=== PATIENT | female | born 1950 | race Caucasian/White ===

== ENCOUNTER 2017-07-19 18:03 | Observation (INO) | payer OTHER ==
[2017-07-19] MEDS ORDERED: ASPIRIN 325 MG ENTERIC COATED TABLET (FP) PO ONE (18:12)
[2017-07-19 18:13] VITALS: BMI 37.2
--- NOTE | 2017-07-19 18:14 | PDOC ---
Rapid Medical Evaluation Chief Complaint: Chest Pain Time Seen by Provider: 07/19/17 18:10 Medical Evaluation: Allergies Allergy/AdvReac Type Severity Reaction Status Date / Time peanut [Peanut] Allergy TONGUE Verified 07/19/17 18:10 SWELLING atorvastatin calcium AdvReac MUSCLE PAIN Verified 07/19/17 18:10 [From Lipitor] 07/19/17 18:10 The patient presents with a chief complaint of: Chest pain/pressure for three days. Hx of angina, has two stents I have performed a brief in-person evaluation of this patient; Pertinent physical exam findings: ambulatory, in no respiratory distress, VSS, RRR I have ordered the following: EKG, CBC, CMP, PT/INR, Troponin, BNP, Chest x-ray , aspirin The patient will proceed to the ED for further evaluation.
[2017-07-19] MEDS ORDERED: ASPIRIN 325 MG ENTERIC COATED TABLET (FP) ONE (18:26)
[2017-07-19 18:52] LABS: EOS % 1.5 % (0-4.5); HEMATOCRIT 44.8 % (32.4-45.2); HEMOGLOBIN 15.2 GM/dL (10.7-15.3); LYMPH % 23.7 % (8-40); MCH 30.1 pg (25.7-33.7); MCHC 33.9 g/dl (32.0-36.0); MEAN CELL VOLUME 88.9 fl (80-96); MEAN PLT VOLUME 9.5 fl (7.5-11.1); MONO % 7.8 % (3.8-10.2); PLATELET COUNT 270 K/MM3 (134-434); RBC 5.04 M/mm3 (3.60-5.2); RDW 12.6 % (11.6-15.6); WHITE BLOOD COUNT 7.4 K/mm3 (4.0-10.0)
[2017-07-19 19:14] LABS: INR 1.04 (0.82-1.09); PROTHROMBIN TIME (PATIENT) 11.7 SEC (9.98-11.88)
[2017-07-19 19:39] LABS: ALBUMIN 4.1 g/dl (3.4-5.0); ANION GAP 8 (8-16); BILIRUBIN,TOTAL 0.4 mg/dL (0.2-1.0); BLOOD UREA NITROGEN 18 mg/dL (7-18); CALCIUM 9.7 mg/dL (8.5-10.1); CHLORIDE 97 mmol/L (98-107); CO2 32 mmol/L (21-32); CREATININE 0.7 mg/dL (0.55-1.02); GLUCOSE,RANDOM 114 mg/dL (74-106); MAGNESIUM 1.8 mg/dL (1.8-2.4); POTASSIUM 3.6 mmol/L (3.5-5.1); SGOT/AST 12 U/L (15-37); SGPT/ALT 25 U/L (12-78); SODIUM 137 mmol/L (136-145)
[2017-07-19 19:42] LABS: ALK PHOS 75 U/L (45-117); TOT PROT 7.5 g/dl (6.4-8.2)
--- NOTE | 2017-07-19 21:25 | PDOC ---
History of Present Illness - General History Source: Patient, Family (daughter), Old Records Exam Limitations: Other (poor historian ) <Mihaela Talley - Last Filed: 07/19/17 21:58> <Florencia Forrest - Last Filed: 07/19/17 23:43> - General Chief Complaint: Chest Pain Stated Complaint: CHEST PAIN Time Seen by Provider: 07/19/17 18:10 - History of Present Illness Initial Comments: 07/19/17 21:45 The patient is a 67 year old female with history of hypertension, hyperlipidemia , CAD s/p stents x 2, skin CA, who presents to the ED complaining of 3 days of chest tightness/chest pressure. She states she has been feeling generally "unwell" for the past few days. She is a poor historian and unable to describe her symptoms further. The daughter at bedside reports the patient has not been able to refill her anti-depressants recently, which may be contributing to her symptoms. The patient has multiple hospital visits where she has been observed for chest pain diagnosed with anxiety/panic attacks. (Mihaela Talley) Past History <Mihaela Talley - Last Filed: 07/19/17 21:58> - Past Medical History Anemia: No Asthma: No Cancer: Yes (SKIN CANCER) Cardiac Disorders: Yes (2 STENTS, ANGINA) CVA: No COPD: No CHF: No Dementia: No Diabetes: No GI Disorders: Yes (GERD,PANCREATITIS) Disorders: No HTN: Yes Hypercholesterolemia: Yes Liver Disease: No Seizures: No Thyroid Disease: No - Surgical History Abdominal Surgery: No Appendectomy: No Cardiac Surgery: Yes (2 STENTS (1999. 2006)) Cholecystectomy: Yes Lung Surgery: No Neurologic Surgery: No Orthopedic Surgery: Yes (LUMBAR FUSION) - Suicide/Smoking/Psychosocial Hx Smoking Status: No Smoking History: Never smoked Have you smoked in the past 12 months: No Number of Cigarettes Smoked Daily: 0 Information on smoking cessation initiated: No Hx Alcohol Use: No Drug/Substance Use Hx: No Substance Use Type: None Hx Substance Use Treatment: No <Florencia Forrest - Last Filed: 07/19/17 23:43> - Past Medical History Allergies/Adverse Reactions: Allergies Allergy/AdvReac Type Severity Reaction Status Date / Time peanut [Peanut] Allergy TONGUE Verified 07/19/17 18:10 SWELLING atorvastatin calcium AdvReac MUSCLE PAIN Verified 07/19/17 18:10 [From Lipitor] Home Medications: Ambulatory Orders Simvastatin 40 mg PO HS #1 02/11/12 Pregabalin [Lyrica] 75 mg PO HS 05/09/12 Tapentadol HCl [Nucynta] 75 mg PO DAILY 10/19/12 Quetiapine Fumarate [Seroquel -] 25 mg PO HS 07/25/13 Metoprolol Succinate [Toprol XL -] 25 mg PO HS 01/29/15 Ranitidine HCl [Zantac] 300 mg PO HS 07/19/17 Valsartan/Hydrochlorothiazide [Valsartan-Hctz 160-12.5 mg Tab] 1 tab PO HS 07/19 Venlafaxine HCl ER [Effexor Xr -] 37.5 mg PO HS 07/19/17 Cardiac Specific PMH - Complaint Specific PMHX Pacemaker: No <Florencia Forrest - Last Filed: 07/19/17 23:43> Review of Systems - Review of Systems Able to Perform ROS?: Yes <Mihaela Talley - Last Filed: 07/19/17 21:58> <Florencia Forrest - Last Filed: 07/19/17 23:43> - Review of Systems Comments:: 07/19/17 22:01 GENERAL/CONSTITUTIONAL: No fever or chills. No weakness. HEAD, EYES, EARS, NOSE AND THROAT: No change in vision. No ear pain or discharge. No sore throat. CARDIOVASCULAR: +Chest tightness/discomfort. No palpitations or shortness of breath. RESPIRATORY: No cough, wheezing, or hemoptysis. GASTROINTESTINAL: No nausea, vomiting, diarrhea or constipation. GENITOURINARY: No dysuria, frequency, or change in urination. MUSCULOSKELETAL: No joint or muscle swelling or pain. No neck or back pain. SKIN: No rash NEUROLOGIC: No headache, vertigo, loss of consciousness, or change in strength/ sensation. ENDOCRINE: No increased thirst. No abnormal weight change. HEMATOLOGIC/LYMPHATIC: No anemia, easy bleeding, or history of blood clots. ALLERGIC/IMMUNOLOGIC: No hives or skin allergy. (Mihaela Talley) *Physical Exam <Mihaela Talley - Last Filed: 07/19/17 21:58> <Florencia Forrest - Last Filed: 07/19/17 23:43> - Vital Signs Last Vital Signs Temp Pulse Resp BP Pulse Ox 98.1 F 75 20 143/86 96 07/19/17 22:58 07/19/17 22:58 07/19/17 22:58 07/19/17 22:58 07/19/17 22:58 - Physical Exam Comments: 07/19/17 22:02 GENERAL: Awake, alert, and fully oriented, in no acute distress HEAD: No signs of trauma EYES: PERRLA, EOMI, sclera anicteric, conjunctiva clear ENT: Auricles normal inspection, hearing grossly normal, nares patent, oropharynx clear without exudates. Moist mucosa NECK: Normal ROM, supple, no lymphadenopathy, JVD, or masses LUNGS: Breath sounds equal, clear to auscultation bilaterally. No wheezes, and no crackles HEART: Regular rate and rhythm, normal S1 and S2, no murmurs, rubs or gallops ABDOMEN: Soft, nontender, normoactive bowel sounds. No guarding, no rebound. No masses EXTREMITIES: Normal range of motion, no edema. No clubbing or cyanosis. No cords, erythema, or tenderness NEUROLOGICAL: Cranial nerves II through XII grossly intact. Normal speech, normal gait SKIN: Warm, Dry, normal turgor, no rashes or lesions noted. (Mihaela Talley) ED Treatment Course - LABORATORY CBC & Chemistry Diagram: 07/19/17 18:42 07/19/17 18:42 <Mihaela Talley - Last Filed: 07/19/17 21:58> - LABORATORY CBC & Chemistry Diagram: 07/19/17 18:42 07/19/17 18:42 <Florencia Forrest - Last Filed: 07/19/17 23:43> - ADDITIONAL ORDERS Additional order review: Laboratory Results 07/19/17 07/19/17 07/19/17 18:42 18:42 18:42 PT with INR 11.70 INR 1.04 Sodium 137 Potassium 3.6 Chloride 97 L Carbon Dioxide 32 Anion Gap 8 BUN 18 Creatinine 0.7 Creat Clearance w eGFR > 60 Random Glucose 114 H Calcium 9.7 Magnesium 1.8 Total Bilirubin 0.4 AST 12 L ALT 25 Alkaline Phosphatase 75 Creatine Kinase 66 Troponin I < 0.02 B-Natriuretic Peptide 27.50 Total Protein 7.5 Albumin 4.1 07/19/17 18:42 RBC 5.04 MCV 88.9 MCHC 33.9 RDW 12.6 MPV 9.5 Neutrophils % 66.0 Lymphocytes % 23.7 Monocytes % 7.8 Eosinophils % 1.5 Basophils % 1.0 - Medications Given in the ED: ED Medications Discontinued Medications Generic Name Dose Route Start Last Admin Trade Name Catie PRN Reason Stop Dose Admin Aspirin 325 mg 07/19/17 18:12 07/19/17 18:23 Ecotrin - PO 07/19/17 18:13 325 mg ONCE ONE Administration Medical Decision Making <Mihaela Talley - Last Filed: 07/19/17 21:58> <Florencia Forrest - Last Filed: 07/19/17 23:43> - Medical Decision Making 07/19/17 23:41 67 yo female p/w several days of constant chest pressure -PMH CAD, cardiac stents and her play leader is Dr Veloz -spoke w Dr Rojo who agreed with the repeat troponin -first troponin negative plan second cardiac enzymes (Florencia Forrest) *DC/Admit/Observation/Transfer <Mihaela Talley - Last Filed: 07/19/17 21:58> - Discharge Dispostion Admit: Yes <Florencia Forrest - Last Filed: 07/19/17 23:43> Diagnosis at time of Disposition: Chest pain Qualifiers: Chest pain type: unspecified Qualified Code(s): R07.9 - Chest pain, unspecified - Attestations Scribe Attestion: 07/19/17 22:02 Documentation prepared by Mihaela Talley, acting as biomedical field service engineer for Florencia Forrest MD. (Mihaela Talley)
--- NOTE | 2017-07-20 02:28 | PN ---
Teaching Attending Note Name of Resident: Howard Damon ATTENDING PHYSICIAN STATEMENT I saw and evaluated the patient. I reviewed the resident's note and discussed the case with the resident. I agree with the resident's findings and plan as documented. SUBJECTIVE: 67 yo F with hx. of HTN, HLD, CAD s/p stents X2, skin ca, who presents w. ED w. hx. of chest tightness/pressure. States that she has last been having continous chest pressure. Notes she saw her straightening machine operator one month ago and noted her workup was fine at that time. States she does not have chest pain or tightness. Also notes she has significant anxiety and as per family is prone to panic attacks. OBJECTIVE: Physical: VS: Vital Signs Period Temp Pulse Resp BP Sys/Perales Pulse Ox Last 24 Hr 97.9 F-98.3 F 72-77 18-20 128-153/85-98 96-100 GEN: NAD, Resting in bed, AAoX3 HEENT: NCAT, PERRL, throat without erythema or exudates CARD: RRR S1, S2 RESP: CTAB ABD: BSx4, NTD to palpation EXT: -C/C/E CBCD WBC 7.4 K/mm3 (4.0-10.0) 07/19/17 18:42 RBC 5.04 M/mm3 (3.60-5.2) 07/19/17 18:42 Hgb 15.2 GM/dL (10.7-15.3) 07/19/17 18:42 Hct 44.8 % (32.4-45.2) 07/19/17 18:42 MCV 88.9 fl (80-96) 07/19/17 18:42 MCHC 33.9 g/dl (32.0-36.0) 07/19/17 18:42 RDW 12.6 % (11.6-15.6) 07/19/17 18:42 Plt Count 270 K/MM3 (134-434) D 07/19/17 18:42 MPV 9.5 fl (7.5-11.1) 07/19/17 18:42 CMP Sodium 137 mmol/L (136-145) 07/19/17 18:42 Potassium 3.6 mmol/L (3.5-5.1) 07/19/17 18:42 Chloride 97 mmol/L (98-107) L 07/19/17 18:42 Carbon Dioxide 32 mmol/L (21-32) 07/19/17 18:42 Anion Gap 8 (8-16) 07/19/17 18:42 BUN 18 mg/dL (7-18) 07/19/17 18:42 Creatinine 0.7 mg/dL (0.55-1.02) 07/19/17 18:42 Creat Clearance w eGFR > 60 (>60) 07/19/17 18:42 Random Glucose 114 mg/dL (74-106) H 07/19/17 18:42 Calcium 9.7 mg/dL (8.5-10.1) 07/19/17 18:42 Total Bilirubin 0.4 mg/dL (0.2-1.0) 07/19/17 18:42 AST 12 U/L (15-37) L 07/19/17 18:42 ALT 25 U/L (12-78) 07/19/17 18:42 Alkaline Phosphatase 75 U/L (45-117) 07/19/17 18:42 Total Protein 7.5 g/dl (6.4-8.2) 07/19/17 18:42 Albumin 4.1 g/dl (3.4-5.0) 07/19/17 18:42 CARDIAC ENZYMES Creatine Kinase 49 IU/L (26-192) 07/20/17 01:00 Troponin I < 0.02 ng/ml (0.00-0.05) 07/20/17 01:00 Home Medications Medication Instructions Recorded Simvastatin 40 mg PO HS #1 02/11/12 Pregabalin [Lyrica] 75 mg PO HS 05/09/12 Tapentadol HCl [Nucynta] 75 mg PO DAILY 10/19/12 Quetiapine Fumarate [Seroquel -] 25 mg PO HS 07/25/13 Metoprolol Succinate [Toprol XL -] 25 mg PO HS 01/29/15 Ranitidine HCl [Zantac] 300 mg PO HS 07/19/17 Valsartan/Hydrochlorothiazide 1 tab PO HS 07/19/17 [Valsartan-Hctz 160-12.5 mg Tab] Venlafaxine HCl ER [Effexor Xr -] 37.5 mg PO HS 02/05/18 ASSESSMENT AND PLAN: 67 yo F with hx. of HTN, HLD, CAD s/p stents X2, skin ca, who presents w. ED w. hx. of chest tightness/pressure, being admitted for ACS rule out 1.) Chest Pressure - RO ACS - Trend Trop/Ekg - Echo and was last seen one month ago, by cardiology - Cardio consult and if possible obtain oupt. records - ASA, BB - Chk. lipid panel/HgbA1c - Statin - HEART 5 2.) HTN - C/W Home meds 3.) Hx. OF CAD - C/W Home meds 4.) Dvt Ppx - Low Risk - Ambulate Place in Obs-Tele
--- NOTE | 2017-07-20 03:15 | HP ---
CHIEF COMPLAINT: CP w/ SOB PCP: HISTORY OF PRESENT ILLNESS: Pt is a 67 y/o Indonesian speaking F with PMH angina, CAD (stent x2), anxiety who presents to ED with CP. Pain was pressure like, lasted 2 hours, was associated with sob, nonradiating. Pt has had similar episodes in the past. Pt states she saw her revenue cycle consultant 4 weeks ago and had an echo done at that time. Denies fever, chills, abd pain, bowel/bladder dysfunction. Stable, in NAD. ER course was notable for: (1) Trop neg x2. (2) CXR and EKG unremarkable. (3) Recent Travel: PAST MEDICAL HISTORY: HTN, Angina, CAD PAST SURGICAL HISTORY: Social History: Smoking: denies Alcohol: denies Drugs: denies Family History: Allergies peanut [Peanut] Allergy (Verified 07/19/17 18:10) TONGUE SWELLING EXCESSIVE SALIVATION atorvastatin calcium [From Lipitor] Adverse Reaction (Verified 07/19/17 18:10) MUSCLE PAIN HOME MEDICATIONS: Home Medications Medication Instructions Recorded Simvastatin 40 mg PO HS #1 02/11/12 Pregabalin [Lyrica] 75 mg PO HS 05/09/12 Tapentadol HCl [Nucynta] 75 mg PO DAILY 10/19/12 Quetiapine Fumarate [Seroquel -] 25 mg PO HS 07/25/13 Metoprolol Succinate [Toprol XL -] 25 mg PO HS 01/29/15 Ranitidine HCl [Zantac] 300 mg PO HS 07/19/17 Valsartan/Hydrochlorothiazide 1 tab PO HS 07/19/17 [Valsartan-Hctz 160-12.5 mg Tab] Venlafaxine HCl ER [Effexor Xr -] 37.5 mg PO HS 07/19/17 REVIEW OF SYSTEMS CONSTITUTIONAL: Absent: fever, chills, diaphoresis, generalized weakness, HEENT: Absent: nasal congestion, throat pain, difficulty swallowing, CARDIOVASCULAR: chest pain Absent: , syncope, palpitations, irregular heart rate, lightheadedness, peripheral edema RESPIRATORY: shortness of breath, Absent: cough, dyspnea with exertion, orthopnea, wheezing, GASTROINTESTINAL: Absent: abdominal pain, abdominal distension, nausea, vomiting, diarrhea, GENITOURINARY: Absent: dysuria, frequency, urgency, hesitancy, hematuria, MUSCULOSKELETAL: Absent: myalgia, arthralgia, SKIN: Absent: rash, HEMATOLOGIC/IMMUNOLOGIC: Absent: easy bleeding NEUROLOGIC: Absent: headache, focal weakness or paresthesias, dizziness, unsteady gait, seizure, mental status changes, bladder or bowel incontinence PSYCHIATRIC: anxiety Absent: , depression PHYSICAL EXAMINATION Vital Signs - 24 hr 07/19/17 07/19/17 07/20/17 18:10 22:58 00:21 Temperature 98.3 F 98.1 F Pulse Rate 77 Pulse Rate [ 75 72 Apical] Respiratory 18 20 20 Rate Blood Pressure 128/98 Blood Pressure 143/86 140/85 [Right Arm] O2 Sat by Pulse 100 96 97 Oximetry (%) 07/20/17 07/20/17 01:04 01:05 Temperature 97.9 F Pulse Rate 77 Pulse Rate [ Apical] Respiratory 20 Rate Blood Pressure 153/85 Blood Pressure [Right Arm] O2 Sat by Pulse 96 Oximetry (%) GENERAL: Awake, alert, and fully oriented, in no acute distress. HEAD: Normal with no signs of trauma. EYES: Pupils equal, round and reactive to light, extraocular movements intact, sclera anicteric, conjunctiva clear. No lid lag. EARS, NOSE, THROAT: oropharynx clear without exudates. Moist mucous membranes. NECK: Normal range of motion, supple without lymphadenopathy, JVD, or masses. LUNGS: Breath sounds equal, clear to auscultation bilaterally. No wheezes, and no crackles. No accessory muscle use. HEART: Regular rate and rhythm, normal S1 and S2 without murmur, rub or gallop. ABDOMEN: Soft, nontender, not distended, normoactive bowel sounds, no guarding, no rebound, no masses. No hepatomegaly or splenomegaly. MUSCULOSKELETAL: Normal range of motion at all joints. No bony deformities or tenderness. No CVA tenderness. UPPER EXTREMITIES: 2+ pulses, warm, well-perfused. No cyanosis. No clubbing. No peripheral edema. LOWER EXTREMITIES: 2+ pulses, warm, well-perfused. No calf tenderness. No peripheral edema. NEUROLOGICAL: Cranial nerves II-XII intact. Normal speech. PSYCHIATRIC: Cooperative. Good eye contact. Appropriate mood and affect. SKIN: Warm, dry, normal turgor, no rashes or lesions noted, normal capillary refill. Laboratory Results - last 24 hr 07/19/17 07/19/17 07/19/17 18:42 18:42 18:42 WBC 7.4 RBC 5.04 Hgb 15.2 Hct 44.8 MCV 88.9 MCH 30.1 MCHC 33.9 RDW 12.6 Plt Count 270 D MPV 9.5 Neutrophils % 66.0 Lymphocytes % 23.7 Monocytes % 7.8 Eosinophils % 1.5 Basophils % 1.0 PT with INR 11.70 INR 1.04 Sodium 137 Potassium 3.6 Chloride 97 L Carbon Dioxide 32 Anion Gap 8 BUN 18 Creatinine 0.7 Creat Clearance w eGFR > 60 Random Glucose 114 H Calcium 9.7 Magnesium 1.8 Total Bilirubin 0.4 AST 12 L ALT 25 Alkaline Phosphatase 75 Creatine Kinase Troponin I B-Natriuretic Peptide 27.50 Total Protein 7.5 Albumin 4.1 07/19/17 07/20/17 18:42 01:00 WBC RBC Hgb Hct MCV MCH MCHC RDW Plt Count MPV Neutrophils % Lymphocytes % Monocytes % Eosinophils % Basophils % PT with INR INR Sodium Potassium Chloride Carbon Dioxide Anion Gap BUN Creatinine Creat Clearance w eGFR Random Glucose Calcium Magnesium Total Bilirubin AST ALT Alkaline Phosphatase Creatine Kinase 66 49 Troponin I < 0.02 < 0.02 B-Natriuretic Peptide Total Protein Albumin ASSESSMENT/PLAN: Pt is a 67 y/o Indonesian-speaking F with PMH CAD, HTN, HLD who presents to ED with CP. Pt being observed to r/o ACS. #r/o ACS -Chest pressure -Trop neg x 2 -EKG unremarkable -HEART score 5 -Cardio consult #HTN -c/w valsartan/HCTZ -c/w toprol #HLD -c/w Zocor #Anxiety -c/w Seroquel -c/w Lyrica -c/w Effexor #back pain -Tepantadol #FEN -not on fluids -lytes wnl -Na-co diet #PPx -hep subQ #dispo -tele/obs Howard Damon MD PGY-1 IM Visit type - Emergency Visit Emergency Visit: Yes ED Registration Date: 07/19/17 Care time: The patient presented to the Emergency Department on the above date and was hospitalized for further evaluation of their emergent condition. - New Patient This patient is new to me today: Yes Date on this admission: 07/20/17 - Critical Care Critical Care patient: No
[2017-07-20] MEDS: HEPARIN NA (PORCINE) 5,000 UNITS/ML 1ML VIAL SQ SCH ×3 (06:09→21:43)
--- NOTE | 2017-07-20 08:06 | PN ---
Progress Note, Physician History of Present Illness: c/o chest pain--better at this time describes a pressure - Current Medication List Current Medications: Active Medications Heparin Sodium (Porcine) (Heparin -) 5,000 unit SQ TID [facility] Last Admin: 07/20/17 06:09 Dose: 5,000 unit Metoprolol Succinate (Toprol Xl -) 25 mg PO HS [facility] Non-Formulary Medication (Simvastatin [Simvastatin]) 40 mg PO HS [facility] Non-Formulary Medication (Valsartan/Hydrochlorothiazide [Valsartan-Hctz 160- 12.5 Mg Tab]) 1 tab PO HS [facility] Pregabalin (Lyrica -) 75 mg PO HS [facility] Quetiapine Fumarate (Seroquel -) 25 mg PO HS [facility] Ranitidine HCl (Zantac -) 300 mg PO HS [facility] Tapentadol (Nucynta -) 75 mg PO DAILY [facility] Stop: 07/21/17 09:59 Venlafaxine HCl (Effexor Xr -) 37.5 mg PO [facility] - Objective Vital Signs: Vital Signs Temperature 97.9 F 07/20/17 05:28 Pulse Rate 67 07/20/17 05:28 Respiratory Rate 18 07/20/17 05:28 Blood Pressure 134/65 07/20/17 05:28 O2 Sat by Pulse Oximetry (%) 96 07/20/17 01:05 Cardiovascular: Yes: Regular Rate and Rhythm Respiratory: Yes: Regular, CTA Bilaterally Gastrointestinal: Yes: Normal Bowel Sounds, Soft. No: Tenderness Edema: No Labs: CBC, BMP 07/19/17 18:42 07/19/17 18:42 INR, PTT INR 1.04 (0.82-1.09) 07/19/17 18:42 Problem List - Problems (1) Chest pain Assessment/Plan: CE NEGATIVE X 2 FOLLOW CE AND EKG CARDIO STRESS TEST Code(s): R07.9 - CHEST PAIN, UNSPECIFIED Qualifiers: Chest pain type: unspecified Qualified Code(s): R07.9 - Chest pain, unspecified (2) CAD (coronary artery disease) Assessment/Plan: ABOVE Code(s): I25.10 - ATHSCL HEART DISEASE OF [place] CORONARY ARTERY W/O ANG PCTRS (3) Depression Assessment/Plan: SAME MEDS Code(s): F32.9 - MAJOR DEPRESSIVE DISORDER, SINGLE EPISODE, UNSPECIFIED (4) HTN (hypertension) Assessment/Plan: CONTROLLED MONITOR Code(s): I10 - ESSENTIAL (PRIMARY) HYPERTENSION
[2017-07-20 09:25] LABS: CHOLESTEROL 191 mg/dL (50-200); HDL CHOLESTEROL 46 mg/dL (40-60); TRIGLYCERIDES 188 mg/dL (35-160)
[2017-07-20 09:35] LABS: LDL CHOLESTEROL (ONLY SJRH) 116 mg/dL (5-100)
--- NOTE | 2017-07-20 09:38 | CON.CARD ---
Consult Consult Specialty:: cardiology Reason for Consultation:: chest discomfort; hx CAD-->stents - History of Present Illness History of Present Illness: The patient is a 67 year old female with history of hypertension, hyperlipidemia, CAD s/p stents x 2, skin CA, depression/anxiety/panic, obesity, who presents to the ED complaining of 3 days of chest tightness/chest pressure. She states she has been feeling generally "unwell" for the past few days. She is a poor historian and unable to describe her symptoms further. The daughter at bedside reports the patient has not been able to refill her anti-depressants recently, which may be contributing to her symptoms. The patient has multiple hospital visits where she has been observed for chest pain diagnosed with anxiety/panic attacks. - History Source History Provided By: Patient, Medical Record Limitations to Obtaining History: Poor Historian - Past Medical History Cardio/Vascular: Yes: CAD (s/p 2 stents in 2006), HTN, Hyperlipdemia, Other ( angina) Gastrointestinal: Yes: GERD, Pancreatitis Psych: Yes: Anxiety, Depression, Other (insominia) Rheumatology: Yes: Rheumatoid Arthritis - Past Surgical History Past Surgical History: Yes: Cholecystectomy - Alcohol/Substance Use Hx Alcohol Use: No - Smoking History Smoking history: Never smoked Have you smoked in the past 12 months: No Aproximately how many cigarettes per day: 0 Home Medications - Allergies Allergies/Adverse Reactions: Allergies Allergy/AdvReac Type Severity Reaction Status Date / Time peanut [Peanut] Allergy TONGUE Verified 07/19/17 18:10 SWELLING atorvastatin calcium AdvReac MUSCLE PAIN Verified 07/19/17 18:10 [From Lipitor] - Home Medications Home Medications: Ambulatory Orders Simvastatin 40 mg PO HS #1 02/11/12 Pregabalin [Lyrica] 75 mg PO HS 05/09/12 Tapentadol HCl [Nucynta] 75 mg PO DAILY 10/19/12 Quetiapine Fumarate [Seroquel -] 25 mg PO HS 07/25/13 Metoprolol Succinate [Toprol XL -] 25 mg PO HS 01/29/15 Ranitidine HCl [Zantac] 300 mg PO HS 07/19/17 Valsartan/Hydrochlorothiazide [Valsartan-Hctz 160-12.5 mg Tab] 1 tab PO HS 07/19 Venlafaxine HCl ER [Effexor Xr -] 37.5 mg PO HS 07/19/17 Vital Signs: Vital Signs Temperature 97.9 F 07/20/17 05:28 Pulse Rate 67 07/20/17 05:28 Respiratory Rate 18 07/20/17 05:28 Blood Pressure 134/65 07/20/17 05:28 O2 Sat by Pulse Oximetry (%) 96 07/20/17 01:05 - Other Data Labs, Other Data: CBC, BMP 07/19/17 18:42 07/19/17 18:42 INR, PTT INR 1.04 (0.82-1.09) 07/19/17 18:42 Troponin, BNP 07/19/17 07/19/17 07/20/17 18:42 18:42 01:00 Troponin I < 0.02 < 0.02 B-Natriuretic Peptide 27.50 07/20/17 08:20 Troponin I < 0.02 B-Natriuretic Peptide Troponin, BNP 07/19/17 07/19/17 07/20/17 18:42 18:42 01:00 Troponin I < 0.02 < 0.02 B-Natriuretic Peptide 27.50 07/20/17 08:20 Troponin I < 0.02 B-Natriuretic Peptide Problem List - Problems (1) Atypical chest pain Code(s): R07.89 - OTHER CHEST PAIN (2) Coronary artery disease Assessment/Plan: aHx coronary stents. Atypical chestpain, exacerbated by tactile pressure to parasternal area. Pain is brought on often by emotional stress; per pt and her daughter. She asks for medications and psychological help; she is presently on Seroquil. TNI 0.02 x 3. EKG: normal study. Pt for completion of stress MIBI tomorrow. Weight loss, diet modification, and increase in exercise will be important in reducing cardiac risks. Code(s): I25.10 - ATHSCL HEART DISEASE OF [place] CORONARY ARTERY W/O ANG PCTRS (3) Back pain Code(s): M54.9 - DORSALGIA, UNSPECIFIED (4) CAD (coronary artery disease) Code(s): I25.10 - ATHSCL HEART DISEASE OF [place] CORONARY ARTERY W/O ANG PCTRS (5) Depression Code(s): F32.9 - MAJOR DEPRESSIVE DISORDER, SINGLE EPISODE, UNSPECIFIED (6) HLD (hyperlipidemia) Code(s): E78.5 - HYPERLIPIDEMIA, UNSPECIFIED (7) HTN (hypertension) Code(s): I10 - ESSENTIAL (PRIMARY) HYPERTENSION (8) Shortness of breath Code(s): R06.02 - SHORTNESS OF BREATH
[2017-07-20] MEDS ORDERED: TAPENTADOL HYDROCHLORIDE 50 MG TABLET PO SCH (10:00)
--- NOTE | 2017-07-20 10:48 | EKG ---
Test Reason : Blood Pressure : / mmHG Vent. Rate : 066 BPM Atrial Rate : 066 BPM P-R Int : 146 ms QRS Dur : 110 ms QT Int : 452 ms P-R-T Axes : 050 -25 047 degrees QTc Int : 473 ms NORMAL SINUS RHYTHM NORMAL ECG WHEN COMPARED WITH ECG OF 01-FEB-2014 11:40, NO SIGNIFICANT CHANGE WAS FOUND Confirmed by Reza Soriano ([id number]) on 07/20/2017 10:48:23 AM Referred By: Andriy CAM Confirmed By:Reza Soriano
[2017-07-20] MEDS ORDERED: VALSARTAN 160 MG TABLET (UD) PO ONE (12:30)
[2017-07-20] MEDS ORDERED: RANITIDINE HCL 150 MG TABLET (FP) PO ONE (12:30)
[2017-07-20] MEDS: RANITIDINE HCL 150 MG TABLET (FP) PO SCH (21:42)
[2017-07-20] MEDS: VALSARTAN 160 MG TABLET (UD) PO SCH (21:42)
[2017-07-20] MEDS: metoPROLOL SUCCINATE 25 MG TAB.SR.24H (FP) PO SCH (21:42)
[2017-07-20] MEDS: PREGABALIN 75 MG CAPSULE PO SCH (21:42)
[2017-07-20] MEDS: QUEtiapine FUMARATE 25 MG TABLET (FP) PO SCH (21:42)
[2017-07-20] MEDS: HYDROCHLOROTHIAZIDE 12.5 MG CAPSULE (FP) PO SCH (21:43)
[2017-07-20] MEDS: VENLAFAXINE HCL 37.5 MG E.R. CAPSULE (FP) PO SCH (21:50)
[2017-07-20] MEDS ORDERED: PATIENT'S OWN MEDICATION (NON-FORMULARY) (Simvastatin [Simvastatin] 40 MG) PO SCH (22:00)
[2017-07-20] MEDS ORDERED: PATIENT'S OWN MEDICATION (NON-FORMULARY) (Valsartan/Hydrochlorothiazide [Valsartan-Hctz 16 PO SCH (22:00)
[2017-07-21] MEDS: HEPARIN NA (PORCINE) 5,000 UNITS/ML 1ML VIAL SQ SCH ×3 (05:35→21:23)
[2017-07-21 07:18] LABS: BASO % 0.9 % (0-2.0); EOS % 3.1 % (0-4.5); HEMATOCRIT 42.3 % (32.4-45.2); HEMOGLOBIN 14.3 GM/dL (10.7-15.3); LYMPH % 30.5 % (8-40); MCH 30.1 pg (25.7-33.7); MCHC 33.9 g/dl (32.0-36.0); MEAN CELL VOLUME 88.8 fl (80-96); MEAN PLT VOLUME 9.1 fl (7.5-11.1); MONO % 10.1 % (3.8-10.2); NEUT % 55.4 % (42.8-82.8); PLATELET COUNT 229 K/MM3 (134-434); RBC 4.76 M/mm3 (3.60-5.2); RDW 12.5 % (11.6-15.6); WHITE BLOOD COUNT 5.9 K/mm3 (4.0-10.0)
--- NOTE | 2017-07-21 08:09 | PN ---
Progress Note, Physician History of Present Illness: c/o chest pain--better at this time describes a pressure - Current Medication List Current Medications: Active Medications Heparin Sodium (Porcine) (Heparin -) 5,000 unit SQ TID [facility] Last Admin: 07/21/17 05:35 Dose: 5,000 unit Hydrochlorothiazide (Hctz -) 12.5 mg PO [facility] Last Admin: 07/20/17 21:43 Dose: 12.5 mg Metoprolol Succinate (Toprol Xl -) 25 mg PO [facility] Last Admin: 07/20/17 21:42 Dose: 12.5 mg Non-Formulary Medication (Simvastatin [Simvastatin]) 40 mg PO [facility] Pregabalin (Lyrica -) 75 mg PO [facility] Last Admin: 07/20/17 21:42 Dose: 75 mg Quetiapine Fumarate (Seroquel -) 25 mg PO [facility] Last Admin: 07/20/17 21:42 Dose: 25 mg Ranitidine HCl (Zantac -) 300 mg PO [facility] Last Admin: 07/20/17 21:42 Dose: 300 mg Tapentadol (Nucynta -) 75 mg PO DAILY [facility] Stop: 07/21/17 09:59 Last Admin: 07/20/17 10:20 Dose: Not Given Valsartan (Diovan -) 160 mg PO [facility] Last Admin: 07/20/17 21:42 Dose: 160 mg Venlafaxine HCl (Effexor Xr -) 37.5 mg PO [facility] Last Admin: 07/20/17 21:50 Dose: 37.5 mg - Objective Vital Signs: Vital Signs Temperature 97.4 F L 07/21/17 05:51 Pulse Rate 58 L 07/21/17 05:51 Respiratory Rate 18 07/21/17 05:51 Blood Pressure 134/83 07/21/17 05:51 O2 Sat by Pulse Oximetry (%) 98 07/21/17 05:51 Cardiovascular: Yes: S1, S2 Respiratory: Yes: Regular, CTA Bilaterally Gastrointestinal: Yes: Normal Bowel Sounds, Soft Labs: INR, PTT INR 1.04 (0.82-1.09) 07/19/17 18:42 Problem List - Problems (1) Chest pain Assessment/Plan: CE NEGATIVE X 2 FOLLOW CE AND EKG CARDIO STRESS TEST Code(s): R07.9 - CHEST PAIN, UNSPECIFIED Qualifiers: Chest pain type: unspecified Qualified Code(s): R07.9 - Chest pain, unspecified (2) CAD (coronary artery disease) Assessment/Plan: ABOVE Code(s): I25.10 - ATHSCL HEART DISEASE OF [place] CORONARY ARTERY W/O ANG PCTRS (3) Depression Assessment/Plan: SAME MEDS Code(s): F32.9 - MAJOR DEPRESSIVE DISORDER, SINGLE EPISODE, UNSPECIFIED (4) HTN (hypertension) Assessment/Plan: CONTROLLED MONITOR Code(s): I10 - ESSENTIAL (PRIMARY) HYPERTENSION
[2017-07-21 08:59] LABS: ALBUMIN 3.4 g/dl (3.4-5.0); ALK PHOS 63 U/L (45-117); ANION GAP 7 (8-16); BILIRUBIN,TOTAL 0.6 mg/dL (0.2-1.0); BLOOD UREA NITROGEN 15 mg/dL (7-18); CALCIUM 8.6 mg/dL (8.5-10.1); CHLORIDE 103 mmol/L (98-107); CO2 31 mmol/L (21-32); CREATININE 0.7 mg/dL (0.55-1.02); GLUCOSE,RANDOM 98 mg/dL (74-106); POTASSIUM 4.1 mmol/L (3.5-5.1); SGOT/AST 11 U/L (15-37); SGPT/ALT 22 U/L (12-78); SODIUM 141 mmol/L (136-145); TOT PROT 6.2 g/dl (6.4-8.2)
[2017-07-21] MEDS ORDERED: REGADENOSON 0.4 MG/5 ML PRE-FILLED SYRINGE IVPUSH ONE ×2 (10:00→12:10)
--- NOTE | 2017-07-21 10:30 | EKG ---
Test Reason : Blood Pressure : / mmHG Vent. Rate : 078 BPM Atrial Rate : 078 BPM P-R Int : 144 ms QRS Dur : 100 ms QT Int : 420 ms P-R-T Axes : 055 -31 053 degrees QTc Int : 478 ms NORMAL SINUS RHYTHM POSSIBLE LEFT ATRIAL ENLARGEMENT LEFT AXIS DEVIATION ABNORMAL ECG WHEN COMPARED WITH ECG OF 01-FEB-2014 11:40, NO SIGNIFICANT CHANGE WAS FOUND Confirmed by HUANG COLLINS, DEBORAH ([id number]) on 07/21/2017 10:30:24 AM Referred By: Confirmed By:DEBORAH ENCINAS MD
--- NOTE | 2017-07-21 11:10 | PN ---
Progress Note, Physician History of Present Illness: The patient is a 67 year old female with history of hypertension, hyperlipidemia, CAD s/p stents x 2, skin CA, depression/anxiety/panic, obesity, who presents to the ED complaining of 3 days of chest tightness/chest pressure. She states she has been feeling generally "unwell" for the past few days. She is a poor historian and unable to describe her symptoms further. The daughter at bedside reports the patient has not been able to refill her anti-depressants recently, which may be contributing to her symptoms. The patient has multiple hospital visits where she has been observed for chest pain diagnosed with anxiety/panic attacks. - Current Medication List Current Medications: Active Medications Heparin Sodium (Porcine) (Heparin -) 5,000 unit SQ TID [facility] Last Admin: 07/21/17 05:35 Dose: 5,000 unit Hydrochlorothiazide (Hctz -) 12.5 mg PO [facility] Last Admin: 07/20/17 21:43 Dose: 12.5 mg Metoprolol Succinate (Toprol Xl -) 25 mg PO [facility] Last Admin: 07/20/17 21:42 Dose: 12.5 mg Non-Formulary Medication (Simvastatin [Simvastatin]) 40 mg PO [facility] Pregabalin (Lyrica -) 75 mg PO [facility] Last Admin: 07/20/17 21:42 Dose: 75 mg Quetiapine Fumarate (Seroquel -) 25 mg PO [facility] Last Admin: 07/20/17 21:42 Dose: 25 mg Ranitidine HCl (Zantac -) 300 mg PO [facility] Last Admin: 07/20/17 21:42 Dose: 300 mg Valsartan (Diovan -) 160 mg PO [facility] Last Admin: 07/20/17 21:42 Dose: 160 mg Venlafaxine HCl (Effexor Xr -) 37.5 mg PO [facility] Last Admin: 07/20/17 21:50 Dose: 37.5 mg - Objective Vital Signs: Vital Signs Temperature 97.4 F L 07/21/17 05:51 Pulse Rate 57 L 07/21/17 10:00 Respiratory Rate 20 07/21/17 10:00 Blood Pressure 132/66 07/21/17 10:00 O2 Sat by Pulse Oximetry (%) 98 07/21/17 09:00 Eyes: Yes: WNL, Conjunctiva Clear, EOM Intact HENT: Yes: WNL, Atraumatic, Normocephalic Neck: Yes: WNL, Supple, Trachea Midline Cardiovascular: Yes: WNL, Regular Rate and Rhythm Respiratory: Yes: WNL, Regular, CTA Bilaterally Gastrointestinal: Yes: WNL, Normal Bowel Sounds Genitourinary: Yes: WNL Musculoskeletal: Yes: WNL Extremities: Yes: WNL Edema: No Integumentary: Yes: WNL Neurological: Yes: WNL, Alert, Oriented ...Motor Strength: WNL Psychiatric: Yes: WNL Labs: CBC, BMP 07/21/17 07:01 07/21/17 07:01 INR, PTT INR 1.04 (0.82-1.09) 07/19/17 18:42 Laboratory Tests 07/19/17 07/19/17 07/19/17 18:42 18:42 18:42 WBC 7.4 RBC 5.04 Hgb 15.2 Hct 44.8 MCV 88.9 MCH 30.1 MCHC 33.9 RDW 12.6 Plt Count 270 D MPV 9.5 Neutrophils % 66.0 Lymphocytes % 23.7 Monocytes % 7.8 Eosinophils % 1.5 Basophils % 1.0 PT with INR 11.70 INR 1.04 Sodium 137 Potassium 3.6 Chloride 97 L Carbon Dioxide 32 Anion Gap 8 BUN 18 Creatinine 0.7 Creat Clearance w eGFR > 60 Random Glucose 114 H Hemoglobin A1c % Calcium 9.7 Magnesium 1.8 Total Bilirubin 0.4 AST 12 L ALT 25 Alkaline Phosphatase 75 Creatine Kinase Troponin I B-Natriuretic Peptide 27.50 Total Protein 7.5 Albumin 4.1 Triglycerides Cholesterol Total LDL Cholesterol HDL Cholesterol TSH 07/19/17 07/20/17 07/20/17 18:42 01:00 08:20 WBC RBC Hgb Hct MCV MCH MCHC RDW Plt Count MPV Neutrophils % Lymphocytes % Monocytes % Eosinophils % Basophils % PT with INR INR Sodium Potassium Chloride Carbon Dioxide Anion Gap BUN Creatinine Creat Clearance w eGFR Random Glucose Hemoglobin A1c % Calcium Magnesium Total Bilirubin AST ALT Alkaline Phosphatase Creatine Kinase 66 49 48 Troponin I < 0.02 < 0.02 < 0.02 B-Natriuretic Peptide Total Protein Albumin Triglycerides 188 H Cholesterol 191 Total LDL Cholesterol 116 H HDL Cholesterol 46 TSH 1.17 07/20/17 07/21/17 07/21/17 08:20 07:01 07:01 WBC 5.9 RBC 4.76 Hgb 14.3 Hct 42.3 MCV 88.8 MCH 30.1 MCHC 33.9 RDW 12.5 Plt Count 229 MPV 9.1 Neutrophils % 55.4 Lymphocytes % 30.5 D Monocytes % 10.1 Eosinophils % 3.1 D Basophils % 0.9 PT with INR INR Sodium 141 Potassium 4.1 Chloride 103 Carbon Dioxide 31 Anion Gap 7 L BUN 15 Creatinine 0.7 Creat Clearance w eGFR > 60 Random Glucose 98 Hemoglobin A1c % 5.4 Calcium 8.6 Magnesium Total Bilirubin 0.6 D AST 11 L ALT 22 Alkaline Phosphatase 63 Creatine Kinase Troponin I B-Natriuretic Peptide Total Protein 6.2 L Albumin 3.4 Triglycerides Cholesterol Total LDL Cholesterol HDL Cholesterol TSH Assessment/Plan Problems (1) Atypical chest pain Code(s): R07.89 - OTHER CHEST PAIN (2) Coronary artery disease Assessment/Plan: aHx coronary stents. Atypical chestpain, exacerbated by tactile pressure to parasternal area. Pain is brought on often by emotional stress; per pt and her daughter. She asks for medications and psychological help; she is presently on Seroquil. TNI 0.02 x 3. EKG: normal study. awaitingcompletion of stress MIBI . Weight loss, diet modification, and increase in exercise will be important in reducing cardiac risks. Code(s): I25.10 - ATHSCL HEART DISEASE OF [place] CORONARY ARTERY W/O ANG PCTRS (3) Back pain Code(s): M54.9 - DORSALGIA, UNSPECIFIED (4) CAD (coronary artery disease) Code(s): I25.10 - ATHSCL HEART DISEASE OF [place] CORONARY ARTERY W/O ANG PCTRS (5) Depression Code(s): F32.9 - MAJOR DEPRESSIVE DISORDER, SINGLE EPISODE, UNSPECIFIED (6) HLD (hyperlipidemia) Code(s): E78.5 - HYPERLIPIDEMIA, UNSPECIFIED (7) HTN (hypertension) Code(s): I10 - ESSENTIAL (PRIMARY) HYPERTENSION (8) Shortness of breath Code(s): R06.02 - SHORTNESS OF BREATH
[2017-07-21] MEDS: HYDROCHLOROTHIAZIDE 12.5 MG CAPSULE (FP) PO SCH (21:20)
[2017-07-21] MEDS: QUEtiapine FUMARATE 25 MG TABLET (FP) PO SCH (21:20)
[2017-07-21] MEDS: VENLAFAXINE HCL 37.5 MG E.R. CAPSULE (FP) PO SCH (21:20)
[2017-07-21] MEDS: PREGABALIN 75 MG CAPSULE PO SCH (21:22)
[2017-07-21] MEDS: metoPROLOL SUCCINATE 25 MG TAB.SR.24H (FP) PO SCH (21:22)
[2017-07-21] MEDS: RANITIDINE HCL 150 MG TABLET (FP) PO SCH (21:22)
[2017-07-21] MEDS: VALSARTAN 160 MG TABLET (UD) PO SCH (21:23)
[2017-07-22] MEDS: HEPARIN NA (PORCINE) 5,000 UNITS/ML 1ML VIAL SQ SCH ×2 (05:35→17:41)
[2017-07-22] MEDS ORDERED: MECLIZINE HCL 12.5 MG TABLET PO PRN (08:30)
--- NOTE | 2017-07-22 08:34 | DS ---
Physical Examination Vital Signs: Vital Signs Temperature 97.5 F L 07/22/17 05:22 Pulse Rate 50 L 07/22/17 05:22 Respiratory Rate 18 07/22/17 05:22 Blood Pressure 128/74 07/22/17 05:22 O2 Sat by Pulse Oximetry (%) 98 07/21/17 20:13 Cardiovascular: Yes: Regular Rate and Rhythm Respiratory: Yes: Regular, CTA Bilaterally Gastrointestinal: Yes: Normal Bowel Sounds, Soft Edema: No Neurological: Yes: Alert, Oriented Labs: CBC, BMP 07/21/17 07:01 07/21/17 07:01 Discharge Summary Reason For Visit: CHEST PAIN Current Active Problems Atypical chest pain (Acute) Chest pain (Acute) Coronary artery disease (Acute) Hospital Course: The patient is a 67 year old female with history of hypertension, hyperlipidemia , CAD s/p stents x 2, skin CA, who presents to the ED complaining of 3 days of chest tightness/chest pressure. She states she has been feeling generally "unwell" for the past few days. She is a poor historian and unable to describe her symptoms further. The daughter at bedside reports the patient has not been able to refill her anti-depressants recently, which may be contributing to her symptoms. The patient has multiple hospital visits where she has been observed for chest pain diagnosed with anxiety/panic attacks. (Mihaela Talley) Past History <Mihaela Talley - Last Filed: 07/19/17 21:58> - Past Medical History Anemia: No Asthma: No Cancer: Yes (SKIN CANCER) Cardiac Disorders: Yes (2 STENTS, ANGINA) CVA: No COPD: No CHF: No Dementia: No Diabetes: No GI Disorders: Yes (GERD,PANCREATITIS) Disorders: No HTN: Yes Hypercholesterolemia: Yes Liver Disease: No Seizures: No Thyroid Disease: No - Surgical History Abdominal Surgery: No Appendectomy: No Cardiac Surgery: Yes (2 STENTS (1999. 2006)) Cholecystectomy: Yes Lung Surgery: No Neurologic Surgery: No Orthopedic Surgery: Yes (LUMBAR FUSION) - Problems (1) Chest pain Assessment/Plan: CE NEGATIVE X 2 FOLLOW CE AND EKG CARDIO STRESS TEST NEGATIVE Code(s): R07.9 - CHEST PAIN, UNSPECIFIED Qualifiers: Chest pain type: unspecified Qualified Code(s): R07.9 - Chest pain, unspecified (2) CAD (coronary artery disease) Assessment/Plan: ABOVE Code(s): I25.10 - ATHSCL HEART DISEASE OF [place] CORONARY ARTERY W/O ANG PCTRS (3) Depression Assessment/Plan: SAME MEDS Code(s): F32.9 - MAJOR DEPRESSIVE DISORDER, SINGLE EPISODE, UNSPECIFIED (4) HTN (hypertension) Assessment/Plan: CONTROLLED MONITOR Code(s): I10 - ESSENTIAL (PRIMARY) HYPERTENSION Condition: Improved - Instructions Referrals: Iftikhar Mathews MD [Staff Physician] - 1 Week Disposition: HOME - Home Medications Comprehensive Discharge Medication List: Ambulatory Orders Simvastatin 40 mg PO HS #1 02/11/12 Pregabalin [Lyrica] 75 mg PO HS 05/09/12 Tapentadol HCl [Nucynta] 75 mg PO DAILY 10/19/12 Quetiapine Fumarate [Seroquel -] 25 mg PO HS 07/25/13 Metoprolol Succinate [Toprol XL -] 25 mg PO HS 01/29/15 Ranitidine HCl [Zantac] 300 mg PO HS 07/19/17 Valsartan/Hydrochlorothiazide [Valsartan-Hctz 160-12.5 mg Tab] 1 tab PO HS 07/19 Venlafaxine HCl ER [Effexor Xr -] 37.5 mg PO HS 07/19/17 Meclizine HCl [Antivert -] 12.5 mg PO TID PRN #30 tablet 07/22/17
[2017-07-22 09:37] LABS: BASO % 1.1 % (0-2.0); EOS % 3.1 % (0-4.5); HEMATOCRIT 43.7 % (32.4-45.2); HEMOGLOBIN 14.5 GM/dL (10.7-15.3); LYMPH % 28.9 % (8-40); MCH 29.8 pg (25.7-33.7); MCHC 33.3 g/dl (32.0-36.0); MEAN CELL VOLUME 89.6 fl (80-96); MEAN PLT VOLUME 8.6 fl (7.5-11.1); MONO % 9.9 % (3.8-10.2); PLATELET COUNT 235 K/MM3 (134-434); RBC 4.87 M/mm3 (3.60-5.2); RDW 12.8 % (11.6-15.6); WHITE BLOOD COUNT 5.9 K/mm3 (4.0-10.0)
[2017-07-22 09:54] LABS: ALBUMIN 3.3 g/dl (3.4-5.0); ANION GAP 8 (8-16); BLOOD UREA NITROGEN 16 mg/dL (7-18); CALCIUM 8.3 mg/dL (8.5-10.1); CHLORIDE 102 mmol/L (98-107); CO2 30 mmol/L (21-32); CREATININE 0.7 mg/dL (0.55-1.02); GLUCOSE,RANDOM 114 mg/dL (74-106); POTASSIUM 3.8 mmol/L (3.5-5.1); SGOT/AST 12 U/L (15-37); SGPT/ALT 22 U/L (12-78); SODIUM 140 mmol/L (136-145)
[2017-07-22 09:58] LABS: ALK PHOS 64 U/L (45-117); BILIRUBIN,TOTAL 0.4 mg/dL (0.2-1.0); TOT PROT 6.4 g/dl (6.4-8.2)
--- NOTE | 2017-07-22 11:16 | PN ---
Progress Note, Physician Chief Complaint: Pt A&Ox3; no chest pain; occasional dizziness. History of Present Illness: The patient is a 67 year old female (michelle Keller), with history of hypertension , hyperlipidemia, CAD s/p stents x 2, skin CA, depression/anxiety/panic, obesity , who presents to the ED complaining of 3 days of chest tightness/chest pressure. She states she has been feeling generally "unwell" for the past few days. She is a poor historian and unable to describe her symptoms further. The daughter at bedside reports the patient has not been able to refill her anti- depressants recently, which may be contributing to her symptoms. The patient has multiple hospital visits where she has been observed for chest pain diagnosed with anxiety/panic attacks. - Current Medication List Current Medications: Active Medications Heparin Sodium (Porcine) (Heparin -) 5,000 unit SQ TID [facility] Last Admin: 07/22/17 05:35 Dose: 5,000 unit Hydrochlorothiazide (Hctz -) 12.5 mg PO [facility] Last Admin: 07/21/17 21:20 Dose: 12.5 mg Meclizine HCl (Antivert -) 12.5 mg PO TID PRN PRN Reason: VERTIGO Metoprolol Succinate (Toprol Xl -) 25 mg PO [facility] Last Admin: 07/21/17 21:22 Dose: 25 mg Non-Formulary Medication (Simvastatin [Simvastatin]) 40 mg PO [facility] Pregabalin (Lyrica -) 75 mg PO [facility] Last Admin: 07/21/17 21:22 Dose: 75 mg Quetiapine Fumarate (Seroquel -) 25 mg PO [facility] Last Admin: 07/21/17 21:20 Dose: 25 mg Ranitidine HCl (Zantac -) 300 mg PO [facility] Last Admin: 07/21/17 21:22 Dose: 300 mg Valsartan (Diovan -) 160 mg PO [facility] Last Admin: 07/21/17 21:23 Dose: 160 mg Venlafaxine HCl (Effexor Xr -) 37.5 mg PO [facility] Last Admin: 07/21/17 21:20 Dose: 37.5 mg - Objective Vital Signs: Vital Signs Temperature 97.5 F L 07/22/17 05:22 Pulse Rate 50 L 07/22/17 05:22 Respiratory Rate 18 07/22/17 05:22 Blood Pressure 128/74 07/22/17 05:22 O2 Sat by Pulse Oximetry (%) 98 07/21/17 20:13 Constitutional: Yes: Well Nourished, Anxious Eyes: Yes: WNL HENT: Yes: WNL Neck: Yes: WNL Cardiovascular: Yes: WNL Respiratory: Yes: WNL Gastrointestinal: Yes: Soft, Abdomen, Obese ...Rectal Exam: Yes: Deferred Genitourinary: No: Anuria Breast(s): Yes: WNL Musculoskeletal: Yes: WNL Extremities: Yes: WNL Edema: No Peripheral Pulses WNL: Yes Integumentary: Yes: WNL Neurological: Yes: WNL ...Motor Strength: WNL Psychiatric: Yes: WNL Labs: CBC, BMP 07/22/17 09:22 07/22/17 09:22 INR, PTT INR 1.04 (0.82-1.09) 07/19/17 18:42 Abnormal Lab Results 07/22/17 09:22 Random Glucose 114 H Calcium 8.3 L AST 12 L Albumin 3.3 L - ....Imaging Other: Image Reviewed (telemetry: NSR) Problem List - Problems (1) Atypical chest pain Assessment/Plan: TNI 0.02 x 3. Stress MIBI yesterday showed no myocardial ischemia. From a cardiac perspective, pt may be bollowed as an outpatient. Code(s): R07.89 - OTHER CHEST PAIN (2) Coronary artery disease Assessment/Plan: aHx coronary stents. Atypical chestpain, exacerbated by tactile pressure to parasternal area. Pain is brought on often by emotional stress; per pt and her daughter. She asks for medications and psychological help; she is presently on Seroquil. TNI 0.02 x 3. EKG: normal study. Stress MIBI 07/21/2017: no ischemia or injury; normal LVEF. Weight loss, diet modification, and increase in exercise will be important in reducing cardiac risks. Pt may be followed up as outpt from a cardiac perspective. Code(s): I25.10 - ATHSCL HEART DISEASE OF [place] CORONARY ARTERY W/O ANG PCTRS (3) Back pain Code(s): M54.9 - DORSALGIA, UNSPECIFIED (4) CAD (coronary artery disease) Code(s): I25.10 - ATHSCL HEART DISEASE OF [place] CORONARY ARTERY W/O ANG PCTRS (5) Depression Code(s): F32.9 - MAJOR DEPRESSIVE DISORDER, SINGLE EPISODE, UNSPECIFIED (6) HLD (hyperlipidemia) Code(s): E78.5 - HYPERLIPIDEMIA, UNSPECIFIED (7) HTN (hypertension) Code(s): I10 - ESSENTIAL (PRIMARY) HYPERTENSION (8) Shortness of breath Code(s): R06.02 - SHORTNESS OF BREATH
[2017-07-22 19:14] VITALS: BP 137/73; PULSE 61; TEMP 98.8
== END 2017-07-22 19:00 | disposition home or self-care (01) ==
LOC: JER 18:03 → JERBED 21:36 → J4W 07-20 01:02
PROVIDERS: ADMIT Internal Medicine; ATTEND Family Medicine
DX: R07.89 Other chest pain (principal); I10 Essential (primary) hypertension; I25.10 Atherosclerotic heart disease of native coronary artery without angina pectoris; E78.5 Hyperlipidemia, unspecified; R06.02 Shortness of breath; K21.9 Gastro-esophageal reflux disease without esophagitis; F41.9 Anxiety disorder, unspecified; M54.9 Dorsalgia, unspecified; F32.9 Major depressive disorder, single episode, unspecified; Z95.5 Presence of coronary angioplasty implant and graft; Z91.010 Allergy to peanuts; Z88.8 Allergy status to other drugs, medicaments and biological substances; Z85.828 Personal history of other malignant neoplasm of skin
CPT/HCPCS: 36415; 70450-TC; 71046-TC-FY; 78452-TC; 80053; 80061; 82550; 83036; 83721; 83735; 83880; 84443; 84484; 85025; 85610; 93005; 93010; 93017; 99283-25; A9502; G0378; J1644

== ENCOUNTER 2017-11-19 17:00 | Emergency (ER) | payer OTHER ==
[2017-11-19 17:21] VITALS: BP 153/82; PULSE 82; TEMP 98; BMI 34.6
--- NOTE | 2017-11-19 17:22 | PDOC ---
Rapid Medical Evaluation Chief Complaint: Injury Time Seen by Provider: 11/19/17 17:19 Medical Evaluation: Allergies Allergy/AdvReac Type Severity Reaction Status Date / Time peanut [Peanut] Allergy TONGUE Verified 11/19/17 17:14 SWELLING atorvastatin calcium AdvReac MUSCLE PAIN Verified 11/19/17 17:14 [From Lipitor] 11/19/17 17:19 I have performed a brief in-person evaluation of this patient. The patient presents with a chief complaint of: L knee injury s/p mechanical today. No head injury and no LOC, CONTRERAS, dizziness, n/v. H/o L knee partial replacement, HTN, HLD, on baby asa, angina and depression Pertinent physical exam findings:ecchymosis w/ swelling to L knee I have ordered the following:xray The patient will proceed to the ED for further evaluation. Discharge Disposition - Diagnosis Knee injury Qualifiers: Encounter type: initial encounter Laterality: left Qualified Code(s): S89.92XA - Unspecified injury of left lower leg, initial encounter - Referrals - Patient Instructions - Post Discharge Activity
[2017-11-19] MEDS ORDERED: KETOROLAC TROMETHAMINE 30 MG/1 ML VIAL IM ONE (18:30)
[2017-11-19] MEDS ORDERED: KETOROLAC TROMETHAMINE 30 MG/1 ML VIAL ONE (18:36)
--- NOTE | 2017-11-19 18:39 | PDOC ---
History of Present Illness - General Chief Complaint: Injury Stated Complaint: FALL INJURY Time Seen by Provider: 11/19/17 17:19 History Source: Patient, Old Records Exam Limitations: No Limitations - History of Present Illness Initial Comments: 11/19/17 18:34 This is 67-year-old woman past medical history of partial left knee replacement who presents emergency Department today with left knee pain status post trip and fall onto knees. Patient states she was running after a bus when she lost her balance causing her to fall forward landing on both knees. Patient was able to immediately after the injury has been able twice since then. Patient reports increased pain to the knee. Past History - Past Medical History Allergies/Adverse Reactions: Allergies Allergy/AdvReac Type Severity Reaction Status Date / Time peanut [Peanut] Allergy TONGUE Verified 11/19/17 17:14 SWELLING atorvastatin calcium AdvReac MUSCLE PAIN Verified 11/19/17 17:14 [From Lipitor] Home Medications: Ambulatory Orders Simvastatin 40 mg PO HS #1 02/11/12 Pregabalin [Lyrica] 75 mg PO HS 05/09/12 Tapentadol HCl [Nucynta] 75 mg PO DAILY 10/19/12 Quetiapine Fumarate [Seroquel -] 25 mg PO HS 07/25/13 Metoprolol Succinate [Toprol XL -] 25 mg PO HS 01/29/15 Ranitidine HCl [Zantac] 300 mg PO HS 07/19/17 Valsartan/Hydrochlorothiazide [Valsartan-Hctz 160-12.5 mg Tab] 1 tab PO HS 07/19 Venlafaxine HCl ER [Effexor Xr -] 37.5 mg PO HS 07/19/17 Meclizine HCl [Antivert -] 12.5 mg PO TID PRN #30 tablet 07/22/17 Anemia: No Asthma: No Cancer: Yes (SKIN CANCER) Cardiac Disorders: Yes (2 STENTS, ANGINA) CVA: No COPD: No CHF: No Dementia: No Diabetes: No GI Disorders: Yes (GERD,PANCREATITIS) Disorders: No HTN: Yes Hypercholesterolemia: Yes Liver Disease: No Seizures: No Thyroid Disease: No - Surgical History Abdominal Surgery: No Appendectomy: No Cardiac Surgery: Yes (2 STENTS (1999. 2006)) Cholecystectomy: Yes Lung Surgery: No Neurologic Surgery: No Orthopedic Surgery: Yes (LUMBAR FUSION) - Immunization History Immunization Up to Date: Yes - Suicide/Smoking/Psychosocial Hx Smoking Status: No Smoking History: Never smoked Have you smoked in the past 12 months: No Number of Cigarettes Smoked Daily: 0 Hx Alcohol Use: No Drug/Substance Use Hx: No Substance Use Type: None Hx Substance Use Treatment: No Review of Systems - Review of Systems Able to Perform ROS?: Yes Is the patient limited French proficient: No Constitutional: No: Symptoms Reported HEENTM: No: Symptoms Reported Respiratory: No: Symptoms reported Cardiac (ROS): No: Symptoms Reported ABD/GI: No: Symptoms Reported : No: Symptoms Reported Musculoskeletal: Yes: See HPI Integumentary: No: Symptoms Reported Neurological: No: Symptoms reported *Physical Exam - Vital Signs Last Vital Signs Temp Pulse Resp BP Pulse Ox 98.0 F 82 18 153/82 98 11/19/17 17:15 11/19/17 17:15 11/19/17 17:15 11/19/17 17:15 11/19/17 17:15 - Physical Exam Musculoskeletal: positive: Other (Knee is swollen and warm to touch. No erythema is noted. No bony deformity upon palpation.) Medical Decision Making - Medical Decision Making 11/19/17 18:39 A/P: 67-year-old woman with history of left partial knee replacement with left knee pain status post fall Left knee swollen and warm to the touch. No erythema noted Able to fully extend knee against resistance. Decreased flexion noted secondary to pain No pain to palpation of bony structures of the leg Toradol, x-rays, reassess X-rays as read by Dr. Ngo: There is no evidence of fracture, dislocation or acute bone or joint abnormalities. There is a calcification/ossification adjacent to the medial condyle of the distal femur. This consistent with a long-standing process and is not acute. The prosthesis is well-seated within the medial joint space. 11/19/17 19:11 Patient states relief of pain after Toradol and application of knee immobilizer. We'll discharge the patient home to follow-up with Dr. Johnson for continued evaluation of her knee pain. *DC/Admit/Observation/Transfer Diagnosis at time of Disposition: Knee injury Qualifiers: Encounter type: initial encounter Laterality: left Qualified Code(s): S89.92XA - Unspecified injury of left lower leg, initial encounter - Discharge Dispostion Disposition: HOME Condition at time of disposition: Stable Decision to Admit order: No - Referrals Referrals: Iftikhar Mathews MD [Primary Care Provider] - Regis Fierro MD [Staff Physician] - - Patient Instructions Additional Instructions: Take Tylenol or Motrin as needed for pain. Follow manufacturers instructions for appropriate dosage. Try not to walk or bear weight on your left leg as much as possible for the next 3 days. Apply ice for 20 minutes and removed for at least 20 minutes before reapplying the ice. Keep immobilizer on your knee as much as possible to help increased stability. Whenever possible keep your foot elevated to decrease swelling to your ankle. Make an appointment to follow-up with Dr. Fierro next week. Return to emergency department for discoloration of the foot, numbness or tingling to the foot, worsening pain, or any other concerns. Thank you very much for choosing us to provide your emergent healthcare needs. - Post Discharge Activity
== END 2017-11-19 19:22 | disposition home or self-care (01) ==
LOC: JERFT 17:00
PROC: 3E0233Z Introduction of Anti-inflammatory into Muscle, Percutaneous Approach (ICD-10-PCS; principal; 2017-11-19)
DX: S89.92XA Unspecified injury of left lower leg, initial encounter (principal); X58.XXXA Exposure to other specified factors, initial encounter; Y93.89 Activity, other specified; Y92.9 Unspecified place or not applicable; K21.9 Gastro-esophageal reflux disease without esophagitis; I10 Essential (primary) hypertension; E78.00 Pure hypercholesterolemia, unspecified; Z87.2 Personal history of diseases of the skin and subcutaneous tissue
CPT/HCPCS: 73562-TC-LT-FY; 99282-25

== ENCOUNTER 2018-07-11 06:42 | Emergency (ER) | payer OTHER ==
--- NOTE | 2018-07-11 07:27 | PDOC ---
History of Present Illness - General Stated Complaint: CHEST TIGHTNESS History Source: Patient Exam Limitations: No Limitations - History of Present Illness Initial Comments: 07/11/18 08:39 68 yo F with a hx of CAD s/p stents (2000, 2006), HTN, HLD, depression, and GERD presents to the emergency department with chest pain and associative cough and SOB. Per the patient's daughter, the patient has had 3x URI in the last 3-4 months with abx in the 2 most recent ones (most recent 1.5 months ago). Per the patient, she had onset of midsternal chest tightness 5:30 am sudden onset without radiation, with acid in the mouth, radiation to the shoulders bilaterally, rated as a 8/10. She states she has the following associative symptoms: nausea, chills, recent sick contacts, and lightheadedness. Denies recent travels, hx of DVT/PE, and fever. Denies the following: visual changes, headaches, abdominal pain, dysuria, hematuria, diarrhea, hematochezia, and leg pain/swelling. Shx: cholecystectomy, hysterectomy, and lumbar fusion Meds: aspirin, metoprolol, simvastatin, quetiapine, amlodipine, HCTZ/losartan Allergies: atorvastatin Social: Denies tobacco, alcohol, and substance abuse. 07/11/18 11:08 Past History - Past Medical History Allergies/Adverse Reactions: Allergies Allergy/AdvReac Type Severity Reaction Status Date / Time peanut [Peanut] Allergy TONGUE Verified 07/11/18 07:36 SWELLING atorvastatin calcium AdvReac MUSCLE PAIN Verified 07/11/18 07:36 [From Lipitor] Home Medications: Ambulatory Orders Simvastatin 40 mg PO HS #1 02/11/12 Pregabalin [Lyrica] 75 mg PO HS 05/09/12 Tapentadol HCl [Nucynta] 75 mg PO DAILY 10/19/12 Quetiapine Fumarate [Seroquel -] 25 mg PO HS 07/25/13 Metoprolol Succinate [Toprol XL -] 25 mg PO HS 01/29/15 Ranitidine HCl [Zantac] 300 mg PO HS 07/19/17 Valsartan/Hydrochlorothiazide [Valsartan-Hctz 160-12.5 mg Tab] 1 tab PO HS 07/19 Venlafaxine HCl ER [Effexor Xr -] 37.5 mg PO HS 07/19/17 Meclizine HCl [Antivert -] 12.5 mg PO TID PRN #30 tablet 07/22/17 Aspirin [Adult Aspirin] 81 mg PO DAILY #30 tablet. 07/11/18 Anemia: No Asthma: No Cancer: Yes (SKIN CANCER) Cardiac Disorders: Yes (2 STENTS, ANGINA) CVA: No COPD: No CHF: No Dementia: No Diabetes: No GI Disorders: Yes (GERD,PANCREATITIS) Disorders: No HTN: Yes Hypercholesterolemia: Yes Liver Disease: No Seizures: No Thyroid Disease: No - Surgical History Abdominal Surgery: No Appendectomy: No Cardiac Surgery: Yes (2 STENTS (1999. 2006)) Cholecystectomy: Yes Lung Surgery: No Neurologic Surgery: No Orthopedic Surgery: Yes (LUMBAR FUSION) - Immunization History Immunization Up to Date: Yes - Suicide/Smoking/Psychosocial Hx Smoking Status: No Smoking History: Never smoked Have you smoked in the past 12 months: No Number of Cigarettes Smoked Daily: 0 Hx Alcohol Use: No Drug/Substance Use Hx: No Substance Use Type: None Hx Substance Use Treatment: No Review of Systems - Review of Systems Able to Perform ROS?: Yes Is the patient limited Setswana proficient: No Constitutional: Yes: Chills. No: Diaphoresis, Fever, Weakness HEENTM: No: Recent change in vision, Ear Pain, Nose Pain, Throat Pain, Mouth Pain Respiratory: Yes: Shortness of Breath. No: Cough, SOB with Exertion, Hemoptysis Cardiac (ROS): Yes: Chest Tightness. No: Lightheadedness, Palpitations, Syncope ABD/GI: Yes: Nausea. No: Constipated, Diarrhea, Poor Appetite, Poor Fluid Intake, Rectal Bleeding, Vomiting, Tarry Stools : No: Burning, Dysuria, Hematuria, Urgency Musculoskeletal: No: Back Pain, Joint Pain, Neck Pain Integumentary: No: Erythema, Pruritus, Rash, Sweating Neurological: No: Headache, Numbness, Tingling, Ataxia, Dizziness Psychiatric: No: Change in Appetite Endocrine: No: Unexplained Weight Gain Hematologic/Lymphatic: No: Anemia *Physical Exam - Physical Exam General Appearance: Yes: Nourished, Appropriately Dressed. No: Apparent Distress, Intoxicated HEENT: positive: EOMI, JESSICA, Normal Voice, Pharynx Normal, Hearing Grossly Normal. negative: Pale Conjunctivae, Scleral Icterus (R), Scleral Icterus (L), Muffled/Hoarse voice, Pharyngeal Erythema, Tonsillar Exudate, Tonsillar Erythema , Nasal Congestion, Rhinorrhea, Excessive drooling Neck: positive: Trachea midline. negative: Tender, Lymphadenopathy (R), Lymphadenopathy (L), Tender lateral, Tender midline Respiratory/Chest: positive: Rhonchi, Wheezing. negative: Chest Tender, Lungs Clear, Normal Breath Sounds, Respiratory Distress, Accessory Muscle Use, Crackles, Rales, Stridor, Hyperresonant Cardiovascular: positive: Regular Rhythm, Regular Rate, S1, S2. negative: Systolic Murmur Gastrointestinal/Abdominal: positive: Normal Bowel Sounds, Flat, Soft. negative : Tender, Guarding, Rebound, Tenderness, Hernia Lymphatic: negative: Adenopathy Musculoskeletal: positive: Normal Inspection. negative: CVA Tenderness, Vertebral Tenderness Extremity: positive: Normal Capillary Refill, Normal Inspection, Normal Range of Motion. negative: Tender, Swelling, Calf Tenderness Integumentary: positive: Normal Color, Dry, Warm. negative: Swelling, Ecchymosis Neurologic: positive: manager strategic alliances II-XII NML intact, Fully Oriented, Alert, Normal Mood/ Affect, Normal Response, Motor Strength 5/5. negative: EOM Palsy, Facial Droop , Sensory Deficit Heart Score/ECG Review - History History: Slightly suspicious - Electrocardiogram EKG: Normal - Age Age: >/= 65 - Risk Factors Risk Factors Heart Score: Yes Hx Hypercholesterolemia, Yes Hx Hypertension, Yes Hx Obesity Based on the list above the patient has:: >/=3 risk factors or Hx atherosclerotic disease - Troponin Troponin: </= normal limit - Score Heart Score - Total: 4 - ECG Intrepretation Comment:: 07/11/18 11:24 ventricular rate: 80 bpm, ND is 130 ms, QRS duration is 100 ms, QTc is 470 ms, normal sinus rhythm without ST elevations or depressions. ED Treatment Course - LABORATORY CBC & Chemistry Diagram: 07/11/18 08:14 07/11/18 08:14 Medical Decision Making - Medical Decision Making 07/11/18 11:18 68 yo F with a hx of CAD s/p stents (2000, 2006), HTN, HLD, depression, and GERD presents to the emergency department with chest pain and associative cough and SOB. Initial vitals: Initial Vital Signs Temp Pulse Resp BP Pulse Ox 99.1 F 87 16 139/71 93 L 07/11/18 07:00 07/11/18 07:00 07/11/18 07:00 07/11/18 07:00 07/11/18 07:00 Work up ddx: ACS vs pericarditis vs PNA vs URI vs pleuritis vs gastritis vs GERD Laboratory Tests 07/11/18 07/11/18 07/11/18 08:14 08:14 08:14 WBC 9.9 RBC 4.39 Hgb 14.2 Hct 38.9 MCV 88.7 MCH 32.3 MCHC 36.4 H RDW 12.8 Plt Count 222 MPV 9.5 Absolute Neuts (auto) 8.2 H Neutrophils % 83.5 H D Lymphocytes % 7.3 L D Monocytes % 8.4 Eosinophils % 0.5 D Basophils % 0.3 Nucleated RBC % 0 PT with INR 11.90 INR 1.01 PTT (Actin FS) 26.1 Sodium 139 Potassium 3.6 Chloride 99 Carbon Dioxide 34 H Anion Gap 6 L BUN 22 H Creatinine 0.9 Creat Clearance w eGFR > 60 Random Glucose 106 Calcium 8.8 Total Bilirubin 0.6 AST 16 ALT 21 Alkaline Phosphatase 64 Creatine Kinase 91 Troponin I < 0.02 B-Natriuretic Peptide 49.4 Total Protein 6.8 Albumin 3.6 First troponin was negative. the chest xray was negative for acute pathologies. interventions given to the patient were famotidine, zofran, tylenol. patient will have a second troponin read. a call was placed to Dr. Treviño's office for consultation. Dr. Plasencia saw the patient recreational director. Stated a troponin 6 hours from the initial should be done. can be followed on outpatient. third trop was negative. patient will call Dr. Treviño's office today for a stress test this week. patient was well appearing at discharge and was able to ambulate on her own volition. Dispo: Discharge *DC/Admit/Observation/Transfer Diagnosis at time of Disposition: Atypical chest pain - Discharge Dispostion Disposition: HOME Decision to Admit order: No - Prescriptions Prescriptions: Aspirin [Adult Aspirin] 81 mg PO DAILY #30 tablet.dr - Referrals Referrals: Iftikhar Mathews MD [Primary Care Provider] - Lauri Treviño MD [Staff Physician] - - Patient Instructions Printed Discharge Instructions: DI for Atypical Chest Pain Additional Instructions: you were seen for your chest tightness and cough. xray does not show pneumonia. your troponin which measures whether there is cardiac damage was negative. you were seen by the program coordinator for residence life who agrees for you to follow up with your program coordinator for residence life within the week for stress test. please keep to this by calling his office today or tomorrow to arrange an appointment . please return to the emergency department if you have worsening symptoms or new concerning symptoms such as change in quality of chest pain with new symptoms. thank you. - Post Discharge Activity
[2018-07-11 07:36] VITALS: TEMP 99.1; BMI 35.6
[2018-07-11] MEDS ORDERED: ONDANSETRON 4 MG/2 ML VIAL IVPUSH ONE (07:55)
[2018-07-11] MEDS ORDERED: SODIUM CHLORIDE 1,000 ML IV STA ×2 (07:55→09:39)
[2018-07-11] MEDS ORDERED: FAMOTIDINE 20 MG/50 ML IVPB 20 MG/50 ML MG IVPB ONE ×2 (07:55→08:25)
[2018-07-11] MEDS ORDERED: ACETAMINOPHEN 1000 MG/100 ML VIAL (NON FORMULARY) IVPB ONE (07:56)
[2018-07-11] MEDS ORDERED: ALBUTEROL SO4 2.5/IPRATROPIUM 0.5 INH SOL 3 ML VIAL.NEB. NEB ONE ×4 (08:02→12:03)
[2018-07-11] MEDS ORDERED: ACETAMINOPHEN INJECTION 100 ML IVPB ONE (08:24)
[2018-07-11] MEDS ORDERED: ONDANSETRON 4 MG/2 ML VIAL ONE (08:25)
[2018-07-11 08:33] LABS: BASO % 0.3 % (0-2.0); EOS % 0.5 % (0-4.5); HEMATOCRIT 38.9 % (32.4-45.2); HEMOGLOBIN 14.2 GM/dL (10.7-15.3); LYMPH % 7.3 % (8-40); MCH 32.3 pg (25.7-33.7); MCHC 36.4 g/dl (32.0-36.0); MEAN CELL VOLUME 88.7 fl (80-96); MEAN PLT VOLUME 9.5 fl (7.5-11.1); MONO % 8.4 % (3.8-10.2); NEUT % 83.5 % (42.8-82.8); PLATELET COUNT 222 K/MM3 (134-434); RBC 4.39 M/mm3 (3.60-5.2); RDW 12.8 % (11.6-15.6); WHITE BLOOD COUNT 9.9 K/mm3 (4.0-10.0)
--- NOTE | 2018-07-11 08:45 | PDOC ---
Attending Attestation - Resident Resident Name: Lg Hollins - ED Attending Attestation I have performed the following: I have examined & evaluated the patient, The case was reviewed & discussed with the resident, I agree w/resident's findings & plan, Exceptions are as noted - HPI HPI: 68 yo F history CAD s/p stends x2, HTN, HL, depression, GERD presents iwth cp, cough, SOB. She c/o substernal and epigastric pain, associated with persistent cough. No fever. - Physicial Exam PE: GENERAL: Awake, alert, and fully oriented, in no acute distress HEAD: No signs of trauma EYES: PERRLA, EOMI, sclera anicteric, conjunctiva clear ENT: Auricles normal inspection, hearing grossly normal, nares patent, oropharynx clear without exudates. Moist mucosa NECK: Normal ROM, supple, no lymphadenopathy, JVD, or masses LUNGS: Slightly decreased air entry B/L, scattered exp. wheezes B/L. HEART: Regular rate and rhythm, normal S1 and S2, no murmurs, rubs or gallops ABDOMEN: Soft, nontender, normoactive bowel sounds. No guarding, no rebound. No masses EXTREMITIES: Normal range of motion, no edema. No clubbing or cyanosis. No cords, erythema, or tenderness NEUROLOGICAL: Cranial nerves II through XII grossly intact. Normal speech, normal gait. Motor and sensation intact SKIN: Warm, Dry, normal turgor, no rashes or lesions noted. - Medical Decision Making Symptoms are very atypical for ACS. More consistent with respiratory illness. Will treat with nebs. CXR obtained.
[2018-07-11 08:56] LABS: INR 1.01 (0.83-1.09); PROTHROMBIN TIME (PATIENT) 11.9 SEC (9.7-13.0)
[2018-07-11 08:59] LABS: ACTIVATED PTT 26.1 SECONDS (25.2-36.5)
[2018-07-11 09:06] LABS: ALBUMIN 3.6 g/dl (3.4-5.0); ALK PHOS 64 U/L (45-117); ANION GAP 6 MMOL/L (8-16); BILIRUBIN,TOTAL 0.6 mg/dL (0.2-1); BLOOD UREA NITROGEN 22 mg/dL (7-18); CALCIUM 8.8 mg/dL (8.5-10.1); CHLORIDE 99 mmol/L (98-107); CO2 34 mmol/L (21-32); CREATININE 0.9 mg/dL (0.55-1.3); GLUCOSE,RANDOM 106 mg/dL (74-106); N-TERMINAL BNP 49.4 pg/ml (5-125); POTASSIUM 3.6 mmol/L (3.5-5.1); SGOT/AST 16 U/L (15-37); SGPT/ALT 21 U/L (13-61); SODIUM 139 mmol/L (136-145); TOT PROT 6.8 g/dl (6.4-8.2)
--- NOTE | 2018-07-11 10:45 | EKG ---
Test Reason : Blood Pressure : / mmHG Vent. Rate : 080 BPM Atrial Rate : 080 BPM P-R Int : 130 ms QRS Dur : 100 ms QT Int : 408 ms P-R-T Axes : 054 -35 046 degrees QTc Int : 470 ms NORMAL SINUS RHYTHM LEFT AXIS DEVIATION ABNORMAL ECG WHEN COMPARED WITH ECG OF 20-JUL-2017 09:07, NO SIGNIFICANT CHANGE WAS FOUND Confirmed by EMILIANO OWEN MD ([id number]) on 07/11/2018 10:45:23 AM Referred By: Confirmed By:EMILIANO OWEN MD
--- NOTE | 2018-07-11 12:30 | CON.CARD ---
Consult Consult Specialty:: Cardiology Reason for Consultation:: chest pain - History of Present Illness History of Present Illness: 68 yo F with a hx of CAD s/p stents (2000, 2006), HTN, HLD, depression, and GERD presents to the emergency department with chest pain and associative cough and SOB. Per the patient's daughter, the patient has had 3x URI in the last 3-4 months with abx in the 2 most recent ones (most recent 1.5 months ago). Per the patient, she had onset of midsternal chest tightness 5:30 am sudden onset without radiation, with acid in the mouth, radiation to the shoulders bilaterally, rated as a 8/10. She states she has the following associative symptoms: nausea, chills, recent sick contacts, and lightheadedness. Denies recent travels, hx of DVT/PE, and fever. Denies the following: visual changes, headaches, abdominal pain, dysuria, hematuria, diarrhea, hematochezia, and leg pain/swelling. Shx: cholecystectomy, hysterectomy, and lumbar fusion Meds: aspirin, metoprolol, simvastatin, quetiapine, amlodipine, HCTZ/losartan Allergies: atorvastatin Social: Denies tobacco, alcohol, and substance abuse. 07/11/18 11:08 Past medical history Major events hx of epidural spinal injections for back pain biliary stent CAD: denies hx PR; had coronary angiograms x 2, the last in [address] Carbajal at [facility] (reportedly did not require coronary angioplasty or stent). s/p lower back surgery 2009 (decreased ambulation since then) Ongoing medical problems chronic lower back pain (herniated lumbar discs; obesity) HTN Hyperlipidemia CAD (s/p PTCA in 1999; coronary angiogram at [facility] 09/2006;; denies hx of PR (normal LVEF, without regional wall motion abnormalities on ECHO 2014; the latest stress Persantine MIBI 07/2013 was negative for myocardial ischemia) anxiety/depression (sees Dr. Corona, psychiatry); binge-eats when depressed obese GERD spinal stenosis thyroid nodule hx biliary stent chronic venous insufficiency chest pain (central, tight, occurs only when anxious, often accompanied by shortness of breath) atypical chest pain (admitted to [facility] 09/11/11 for anxiety-elicited chest pressure; she has had at least 4 stress MIBIs in the hospital over the past several yrs, the latest 08/22, and again in office 07/2013: none showed myocardial ischemia) ?cervical disc herniations insomnia - History Source History Provided By: Patient, Medical Record - Past Medical History Cardio/Vascular: Yes: CAD (s/p 2 stents in 2006), HTN, Hyperlipdemia, Other ( angina) Gastrointestinal: Yes: GERD, Pancreatitis Psych: Yes: Anxiety, Depression, Other (insominia) Rheumatology: Yes: Rheumatoid Arthritis - Past Surgical History Past Surgical History: Yes: Cholecystectomy - Alcohol/Substance Use Hx Alcohol Use: No - Smoking History Smoking history: Never smoked Have you smoked in the past 12 months: No Aproximately how many cigarettes per day: 0 Home Medications - Allergies Allergies/Adverse Reactions: Allergies Allergy/AdvReac Type Severity Reaction Status Date / Time peanut [Peanut] Allergy TONGUE Verified 07/11/18 07:36 SWELLING atorvastatin calcium AdvReac MUSCLE PAIN Verified 07/11/18 07:36 [From Lipitor] - Home Medications Home Medications: Ambulatory Orders Simvastatin 40 mg PO HS #1 02/11/12 Pregabalin [Lyrica] 75 mg PO HS 05/09/12 Tapentadol HCl [Nucynta] 75 mg PO DAILY 10/19/12 Quetiapine Fumarate [Seroquel -] 25 mg PO HS 07/25/13 Metoprolol Succinate [Toprol XL -] 25 mg PO HS 01/29/15 Ranitidine HCl [Zantac] 300 mg PO HS 07/19/17 Valsartan/Hydrochlorothiazide [Valsartan-Hctz 160-12.5 mg Tab] 1 tab PO HS 07/19 Venlafaxine HCl ER [Effexor Xr -] 37.5 mg PO HS 07/19/17 Meclizine HCl [Antivert -] 12.5 mg PO TID PRN #30 tablet 07/22/17 Review of Systems - Review of Systems Constitutional: reports: No Symptoms Eyes: reports: No Symptoms HENT: reports: No Symptoms Neck: reports: No Symptoms Cardiovascular: reports: Chest Pain Gastrointestinal: reports: No Symptoms Genitourinary: reports: No Symptoms Breasts: reports: No Symptoms Reported Musculoskeletal: reports: No Symptoms Integumentary: reports: No Symptoms Neurological: reports: No Symptoms Endocrine: reports: No Symptoms Hematology/Lymphatic: reports: No Symptoms Psychiatric: reports: No Symptoms Vital Signs: Vital Signs Temperature 99.1 F 07/11/18 07:00 Pulse Rate 87 07/11/18 07:00 Respiratory Rate 16 07/11/18 07:00 Blood Pressure 139/71 07/11/18 07:00 O2 Sat by Pulse Oximetry (%) 93 L 07/11/18 07:00 Constitutional: Yes: Well Nourished, No Distress, Calm Eyes: Yes: WNL, Conjunctiva Clear, EOM Intact HENT: Yes: WNL, Atraumatic, Normocephalic Neck: Yes: WNL, Supple, Trachea Midline Respiratory: Yes: WNL, Regular, CTA Bilaterally Gastrointestinal: Yes: WNL, Normal Bowel Sounds Renal/: Yes: WNL Cardiovascular: Yes: WNL, Regular Rate and Rhythm Heart Sounds: Yes: S1, S2 Musculoskeletal: Yes: WNL Extremities: Yes: WNL Integumentary: Yes: WNL Neurological: Yes: WNL, Alert, Oriented ...Motor Strength: WNL Psychiatric: Yes: WNL, Alert, Oriented - Other Data Labs, Other Data: CBC, BMP 07/11/18 08:14 07/11/18 08:14 INR, PTT INR 1.01 (0.83-1.09) 07/11/18 08:14 Troponin, BNP 07/11/18 07/11/18 08:14 11:21 Troponin I < 0.02 < 0.02 B-Natriuretic Peptide 49.4 Troponin, BNP 07/11/18 07/11/18 08:14 11:21 Troponin I < 0.02 < 0.02 B-Natriuretic Peptide 49.4 Laboratory Tests 07/11/18 07/11/18 07/11/18 08:14 08:14 08:14 WBC 9.9 RBC 4.39 Hgb 14.2 Hct 38.9 MCV 88.7 MCH 32.3 MCHC 36.4 H RDW 12.8 Plt Count 222 MPV 9.5 Absolute Neuts (auto) 8.2 H Neutrophils % 83.5 H D Lymphocytes % 7.3 L D Monocytes % 8.4 Eosinophils % 0.5 D Basophils % 0.3 Nucleated RBC % 0 PT with INR 11.90 INR 1.01 PTT (Actin FS) 26.1 Sodium 139 Potassium 3.6 Chloride 99 Carbon Dioxide 34 H Anion Gap 6 L BUN 22 H Creatinine 0.9 Creat Clearance w eGFR > 60 Random Glucose 106 Calcium 8.8 Total Bilirubin 0.6 AST 16 ALT 21 Alkaline Phosphatase 64 Creatine Kinase 91 Troponin I < 0.02 B-Natriuretic Peptide 49.4 Total Protein 6.8 Albumin 3.6 07/11/18 11:21 WBC RBC Hgb Hct MCV MCH MCHC RDW Plt Count MPV Absolute Neuts (auto) Neutrophils % Lymphocytes % Monocytes % Eosinophils % Basophils % Nucleated RBC % PT with INR INR PTT (Actin FS) Sodium Potassium Chloride Carbon Dioxide Anion Gap BUN Creatinine Creat Clearance w eGFR Random Glucose Calcium Total Bilirubin AST ALT Alkaline Phosphatase Creatine Kinase Troponin I < 0.02 B-Natriuretic Peptide Total Protein Albumin Imaging - Results Chest X-ray: Image Reviewed (no i/e) EKG: Image Reviewed (sr ldea no st tw changes) Problem List - Problems (1) Atypical chest pain Code(s): R07.89 - OTHER CHEST PAIN (2) Back pain Code(s): M54.9 - DORSALGIA, UNSPECIFIED (3) CAD (coronary artery disease) Code(s): I25.10 - ATHSCL HEART DISEASE OF [place] CORONARY ARTERY W/O ANG PCTRS (4) Chest pain Code(s): R07.9 - CHEST PAIN, UNSPECIFIED Qualifiers: Chest pain type: unspecified Qualified Code(s): R07.9 - Chest pain, unspecified (5) Contusion of left forearm Code(s): S50.12XA - CONTUSION OF LEFT FOREARM, INITIAL ENCOUNTER (6) Coronary artery disease Code(s): I25.10 - ATHSCL HEART DISEASE OF [place] CORONARY ARTERY W/O ANG PCTRS (7) Depression Code(s): F32.9 - MAJOR DEPRESSIVE DISORDER, SINGLE EPISODE, UNSPECIFIED (8) Diaphoresis Code(s): R61 - GENERALIZED HYPERHIDROSIS (9) HLD (hyperlipidemia) Code(s): E78.5 - HYPERLIPIDEMIA, UNSPECIFIED (10) HTN (hypertension) Code(s): I10 - ESSENTIAL (PRIMARY) HYPERTENSION (11) Knee injury Code(s): S89.90XA - UNSPECIFIED INJURY OF UNSPECIFIED LOWER LEG, INIT ENCNTR Qualifiers: Encounter type: initial encounter Laterality: left Qualified Code(s): S89.92XA - Unspecified injury of left lower leg, initial encounter (12) Nausea Code(s): R11.0 - NAUSEA (13) Shortness of breath Code(s): R06.02 - SHORTNESS OF BREATH Assessment/Plan cp syndrome ? atypical GERD 2 sets ce neg hx of epidural spinal injections for back pain biliary stent CAD: denies hx PR; had coronary angiograms x 2, the last in [address] Carbajal at [facility] (reportedly did not require coronary angioplasty or stent). s/p lower back surgery 2009 (decreased ambulation since then) Ongoing medical problems chronic lower back pain (herniated lumbar discs; obesity) HTN Hyperlipidemia CAD (s/p PTCA in 1999; coronary angiogram at [facility] 09/2006;; denies hx of PR (normal LVEF, without regional wall motion abnormalities on ECHO 2014; the latest stress Persantine MIBI 07/2013 was negative for myocardial ischemia) anxiety/depression (sees Dr. Corona, psychiatry); binge-eats when depressed obese GERD spinal stenosis thyroid nodule hx biliary stent chronic venous insufficiency chest pain (central, tight, occurs only when anxious, often accompanied by shortness of breath) atypical chest pain (admitted to [facility] 09/11/11 for anxiety-elicited chest pressure; she has had at least 4 stress MIBIs in the hospital over the past several yrs, the latest 08/22, and again in office 07/2013: none showed myocardial ischemia) ?cervical disc herniations insomnia Plan; one more set of enzymes 6 hrs after the first one if negative may be d/c on ASA /statins/bb and have a stress test in the office later this week
[2018-07-11 16:05] VITALS: BP 123/68; PULSE 71
== END 2018-07-11 16:45 | disposition home or self-care (01) ==
LOC: JER 06:42
PROC: 3E0F7GC Introduction of Other Therapeutic Substance into Respiratory Tract, Via Natural or Artificial Opening (ICD-10-PCS; principal; 2018-07-11)
PROC: 3E0F7GC Introduction of Other Therapeutic Substance into Respiratory Tract, Via Natural or Artificial Opening (ICD-10-PCS; 2018-07-11)
PROC: 3E0337Z Introduction of Electrolytic and Water Balance Substance into Peripheral Vein, Percutaneous Approach (ICD-10-PCS; 2018-07-11)
PROC: 3E033GC Introduction of Other Therapeutic Substance into Peripheral Vein, Percutaneous Approach (ICD-10-PCS; 2018-07-11)
PROC: 3E033GC Introduction of Other Therapeutic Substance into Peripheral Vein, Percutaneous Approach (ICD-10-PCS; 2018-07-11)
PROC: 3E033NZ Introduction of Analgesics, Hypnotics, Sedatives into Peripheral Vein, Percutaneous Approach (ICD-10-PCS; 2018-07-11)
DX: R07.89 Other chest pain (principal); I25.119 Atherosclerotic heart disease of native coronary artery with unspecified angina pectoris; I10 Essential (primary) hypertension; Z95.5 Presence of coronary angioplasty implant and graft; E78.00 Pure hypercholesterolemia, unspecified; Z87.19 Personal history of other diseases of the digestive system; Z85.828 Personal history of other malignant neoplasm of skin
CPT/HCPCS: 36415; 71046-TC-FY; 80053; 82550; 83880; 84484; 85025; 85610; 85730; 87804; 93005; 93010; 94640; 96361; 96365; 96375; 99282-25; J0131; J7030

== ENCOUNTER 2018-09-19 06:40 | Day surgery (SDC) | payer OTHER ==
[2018-09-19 07:28] VITALS: BMI 36.0
[2018-09-19 08:57] VITALS: TEMP 97.8
[2018-09-19 10:07] VITALS: BP 112/81; PULSE 63
--- NOTE | 2018-09-20 16:37 | PATH ---
Surgical Pathology Report Patient Name: KINZA BUSTOS [facility]. Rec. #: [id number] /Age/Gender: 1950 (Age: 68) / F Account: [id number] Location: ASU-ENDOSCOPY Taken: 09/19/2018 Received: 09/19/2018 Reported: 09/20/2018 Physicians: Elena Malone M.D. Specimen(s) Received A: PROXIMAL AND MID TRANSVERSE COLON B: PROXIMAL TRANSVERSE COLON C: RIGHT COLON D: RECTAL POLYP Clinical History History of polyps Postoperative diagnosis: Diverticulosis, colon polyps, transverse colon lipoma Final Diagnosis A. PROXIMAL AND MID TRANSVERSE COLON, POLYPS, POLYPECTOMY: TUBULAR ADENOMA(S). B. PROXIMAL TRANSVERSE COLON, 'LIPOMA', POLYPECTOMY: HYPERPLASTIC POLYP. NO SUBMUCOSAL TISSUE IDENTIFIED. C. COLON, RIGHT, POLYP, POLYPECTOMY: TUBULAR ADENOMA. D. RECTUM, POLYPS, POLYPECTOMY: HYPERPLASTIC POLYP(S). Electronically Signed Kinza Pham M.D. Gross Description A. Received in formalin, labeled "polyps proximal and mid transverse" are 8 acosta, irregular portions of soft tissue ranging from 0.2-0.8 cm. in greatest dimension. The specimens are submitted in toto in one cassette. B. Received in formalin, labeled "biopsy proximal transverse colon lipoma" are 4 acosta, irregular portions of soft tissue ranging from 0.2-0.3 cm. in greatest dimension. The specimens are submitted in toto in one cassette. C. Received in formalin, labeled "polyp right colon" is a acosta, irregular portion of soft tissue measuring 0.4 cm. in greatest dimension. The specimen is submitted in toto in one cassette. D. Received in formalin, labeled "polyps rectum" are 2 acosta, irregular portions of soft tissue averaging 0.6 cm. in greatest dimension. The specimens are submitted in toto in one cassette. 09/19/201809/19/2018
== END 2018-09-19 10:09 | disposition home or self-care (01) ==
LOC: JASU-ENDO 06:40
PROVIDERS: ATTEND Internal Medicine Gastroenterology
PROC: 0DBF8ZX Excision of Right Large Intestine, Via Natural or Artificial Opening Endoscopic, Diagnostic (ICD-10-PCS; 2018-09-19)
PROC: 0DBP8ZX Excision of Rectum, Via Natural or Artificial Opening Endoscopic, Diagnostic (ICD-10-PCS; 2018-09-19)
PROC: 3E0H8GC Introduction of Other Therapeutic Substance into Lower GI, Via Natural or Artificial Opening Endoscopic (ICD-10-PCS; 2018-09-19)
PROC: 0DBL8ZX Excision of Transverse Colon, Via Natural or Artificial Opening Endoscopic, Diagnostic (ICD-10-PCS; principal; 2018-09-19 08:00)
DX: Z12.11 Encounter for screening for malignant neoplasm of colon (principal); Z86.010 Personal history of colon polyps; D12.3 Benign neoplasm of transverse colon; K57.30 Diverticulosis of large intestine without perforation or abscess without bleeding; K63.89 Other specified diseases of intestine; K64.8 Other hemorrhoids; K62.1 Rectal polyp
CPT/HCPCS: 88305-TC

== ENCOUNTER 2020-04-17 04:39 | Day surgery (SDC) | payer OTHER ==
--- OUTSIDE RECORDS SUMMARY | 2020-04-03 10:11 | XMS ---
:1950 Author Organization [facility] Care Team Providers Name Role Phone ANABELLE CASSIDY Unavailable Unavailable Billy Torres MD Unavailable Unavailable Re-disclosure Warning The records that you are about to access may contain information from federally- assisted alcohol or drug abuse programs. If such information is present, then the following federally mandated warning applies: This information has been disclosed to you from records protected by federal confidentiality rules (42 CFR part 2). The federal rules prohibit you from making any further disclosure of this information unless further disclosure is expressly permitted by the written consent of the person to whom it pertains or as otherwise permitted by 42 CFR part 2. A general authorization for the release of medical or other information is NOT sufficient for this purpose. The Federal rules restrict any use of the information to criminally investigate or prosecute any alcohol or drug abuse patient.The records that you are about to access may contain highly sensitive health information, the redisclosure of which is protected by Article 27-F of the [facility] Public Health law. If you continue you may haveaccess to information: Regarding HIV / AIDS; Provided by facilities licensed or operated by the [facility] Office of Mental Health; or Provided by the [facility] Office for People With Developmental Disabilities. If such information is present, then the following [facility] mandated warning applies: This information has been disclosed to you from confidential records which are protected by state law. State law prohibits you from making any further disclosure of this information without the specific written consent of the person to whom it pertains, or as otherwise permitted by law. Any unauthorized further disclosure in violation of state law may result in a fine or snf sentence or both. A general authorization for the release of medical or other information is NOT sufficient authorization for further disclosure. Allergies and Adverse Reactions Type Description Substance Reaction Status Data Source(s ) Food allergy peanut peanut NOT LISTED [facility] Drug allergy No Known Allergies No Known nka [facility] Allergies Hospital Encounters Encounter Providers Location Date Indications Data Source(s ) Outpatient Attender: KHANH 09/27/2019 Z03.818 [facility] WavebornDARIUSWaveborndmitter: 02:20:00 PM Health C are KHANH WavebornDARIUS Bancha Z03.818 Outpatient Attender: Billy 06/28/2019 NONTRAUMATIC Zamzam Torres MD 04:30:00 PM EST - COMPLETE TEAR OF H ospital 06/29/2019 RIGHT ROTATOR CUFF 06:44:00 AM EST NONTRAUMATIC COMPLETE TEAR OF RIGHT ROTA TOR CUFF Patient discharged. Functional Status Medications Medication Brand Start Product Dose Route Administrative Pharmacy [facility] Indications Reaction Description Data Name Date Form Instructions Instructions Source(s) Acetaminoph Oxycod 06/29/ TABLET 1 ORAL active White en 325 MG / one/Ac 2019 {[place]aps [place] s Oxycodone etamin 09:52: ule} Hospit al Hydrochlori ophen 00 AM de 5 MG EST Oral Tablet [Percocet] Oxycodone/A cetaminophe n Ondansetron Ondans 06/29/ TABLET 4 mg ORAL active White 4 MG etron 2020 [place] [facility] Hcl 09:51: Hospit al ing Oral 00 AM Tablet EST Ondansetron Hcl Docusate Docusa 06/29/ CAPSULE 100 ORAL active Wh ite Sodium 100 te 2020 mg [place] MG Oral Sodium 09:51: Hospital Capsule 00 AM EST Insurance Providers Payer name Policy type Policy ID Covered Covered constitution party's Policy P aura / Coverage constitution party ID relationship to [employer] Inf ormation type taylor BELARUSIAN [id number] PT [id number] 200 [employer]AN [employer] MEDICARE [id number] Problems, Conditions, and Diagnoses Code Display Name Description Problem Type Effective Data Sour ce(s) Dates Z03.818 Encounter for ENCNTR FOR OBS Diagnosis 09/27/2019 Fabiola dajuan observation for FOR SUSP EXPSR 02:20:00 PM [facility] Health suspected exposure TO OTH BIOLG EDT Care to other biological AGENTS RULED Cor poration agents ruled out OUT K21.9 Gastro-esophageal K21.9 Diagnosis 06/29/2019 [facility] reflux disease 05:44:00 AM Hospital without esophagitis EST Y92.[address] or Y92.9 Diagnosis 06/29/2019 Whit e [place] not applicable 05:44:00 AM Hospital EST W18.30XA Fall on same level, W18.30XA Diagnosis 06/29/2019 [place] unspecified, initial 05:44:00 AM Hos pital encounter EST Z95.5 Presence of coronary Z95.5 Diagnosis 06/29/2019 [facility] e [place] angioplasty implant 05:44:00 AM Hosp ital and graft EST I10 Essential (primary) I10 Diagnosis 06/29/2019 [place] hypertension 05:44:00 AM Hospital EST I25.10 Atherosclerotic I25.10 Diagnosis 06/29/2019 [facility] ins heart disease of 05:44:00 AM [facility] [place] coronary EST artery without angina pectoris S46.011A Strain of muscle(s) S46.011A Diagnosis 06/29/2019 [place] and tendon(s) of the 05:44:00 AM Hos pital rotator cuff of EST right shoulder, initial encounter Surgeries/Procedures Procedure Description Date Indications Data Source(s) Oxygen therapy 06/29/2019 [facility] (procedure) 12:00:00 AM EST Results ID Date Data Source [id number] 09/27/2019 12:00:00 AM EDT [facility] Name Value Range Interpretation Code Description Data Izabella rce(s) Supporting Document(s ) 2019-nCoV [facility] RNA XXX ALBERTO+probe- Imp This lab was ordered by [facility] and reported by [employer] Procedure Vital Signs ID Date Data Source UNK Name Value Range Interpretation Code Description Data Source(s) Diastolic blood 60 mm[Hg] 60 mm[Hg] [facility] pressure Hospital Systolic blood 113 mm[Hg] 113 mm[Hg] Zamzam [place] [facility] pressure Hospital Respiratory rate 16 /min 16 /min [facility] Heart rate 78 /min 78 /min [facility] Body temperature 36.48098 [place] 36.61103 [place] [facility] Body temperature 97.4 [degF] 97.4 [degF] [facility] Body mass index 36.5 kg/m2 36.5 kg/m2 Zamzam [facility] ins (BMI) [Ratio] Hospital Body weight 206 [lb_av] 206 [lb_av] [facility]
[2020-04-11 14:00] VITALS: BMI 37.0
--- OUTSIDE RECORDS SUMMARY | 2020-04-17 04:43 | XMS ---
:1950 Author Organization [facility] Care Team Providers Name Role Phone ANABELLE [...] is protected by Article 27-F of the [facility] Public Health law. If you continue you may haveaccess to information: Regarding HIV / AIDS; Provided by facilities licensed or operated by the [facility] Office of Mental Health; or Provided by the [facility] Office for People With Developmental Disabilities. If such information is present, then the following [facility] mandated warning applies: This information has [...] law may result in a fine or halfway sentence or both. A general authorization for the release of medical or other information is NOT sufficient authorization for further disclosure. Allergies and Adverse Reactions Type Description Substance Reaction Status Data Source(s ) Food allergy peanut peanut NOT LISTED [facility] Drug allergy No Known Allergies No Known nka [place] [facility] [place] Allergies Hospital Encounters Encounter Providers Location Date Indications Data Source(s ) Outpatient Attender: KHANH 09/27/2019 Z03.818 [facility] [email or web address]: 02:20:00 PM [facility] are KHANH [email or web address] [employer] [facility] Z03.818 Outpatient Attender: Billy 06/28/2019 NONTRAUMATIC Zamzam Torres MD 04:30:00 PM EST - COMPLETE TEAR OF H ospital 06/29/2019 RIGHT ROTATOR CUFF 06:44:00 AM EST NONTRAUMATIC COMPLETE TEAR OF RIGHT ROTA TOR CUFF Patient discharged. Functional Status Medications Medication Brand Start Product Dose Route Administrative Pharmacy [facility] Indications Reaction Description Data Name Date Form Instructions Instructions Source(s) Acetaminoph Oxycod 06/29/ TABLET 1 ORAL active [facility] en 325 MG / one/Ac 2019 {[place] s Oxycodone etamin 09:52: ule} Hospit al Hydrochlori ophen 00 AM de 5 MG EST Oral Tablet [Percocet] Oxycodone/A cetaminophe n Ondansetron Ondans 06/29/ TABLET 4 mg ORAL active White 4 MG etron 2019 [place] Disintegr[facility] Hcl 09:51: Hospit al ing Oral 00 AM Tablet EST Ondansetron Hcl Docusate Docusa 06/29/ CAPSULE 100 ORAL active Wh ite Sodium 100 te 2020 mg [place] MG Oral Sodium 09:51: Hospital Capsule 00 AM EST Insurance Providers Payer name Policy type Policy ID Covered Covered libertarian's Policy P aura / Coverage libertarian ID relationship to [employer] Inf ormation type taylor [place] [id number] [place] [id number] MILAN [id number] PT [id number] 200 [employer]AN Problems, Conditions, and Diagnoses Code Display Name Description Problem Type Effective Data Sour ce(s) Dates Z03.818 Encounter for ENCNTR FOR OBS Diagnosis 09/27/2019 Fabiola graff observation for FOR SUSP EXPSR 02:20:00 PM Coun ty Health suspected exposure TO OTH BIOLG EDT Care to other biological AGENTS RULED Cor poration agents ruled out OUT K21.9 Gastro-esophageal K21.9 Diagnosis 06/29/2019 [facility] reflux disease 05:44:00 AM Hospital without esophagitis EST Y92.[address] or Y92.9 Diagnosis 06/29/2019 Whit e [place] not applicable 05:44:00 AM Hospital EST W18.30XA Fall on same level, W18.30XA Diagnosis 06/29/2019 [place] unspecified, initial 05:44:00 AM Hos pital encounter EST Z95.5 Presence of coronary Z95.5 Diagnosis 06/29/2019 [facility] e [place] angioplasty implant 05:44:00 AM Hosp ital and graft EST I10 Essential (primary) I10 Diagnosis 06/29/2019 [place] hypertension 05:44:00 AM Hospital EST I25.10 Atherosclerotic I25.10 Diagnosis 06/29/2019 [facility] [place] ins heart disease of 05:44:00 AM [facility] [place] coronary EST artery without angina pectoris S46.011A Strain of muscle(s) S46.011A Diagnosis 06/29/2019 [place] and tendon(s) of the 05:44:00 AM Hos pital rotator cuff of EST right shoulder, initial encounter Surgeries/Procedures Procedure Description Date Indications Data Source(s) Oxygen therapy 06/29/2019 [facility] (procedure) 12:00:00 AM EST Results ID Date Data Source [id number] 04/12/2020 04:55:00 PM EDT [facility] Name Value Range Interpretation Description Data Sup porting Code Source(s) Document(s ) SARS [facility] coronavirus 2 RNA This lab was ordered by [facility] and reported by [facility]. ID Date Data Source [id number] 09/27/2019 12:00:00 AM EDT [facility] Name Value Range Interpretation Code Description Data Izabella rce(s) Supporting Document(s ) 2019-nCoV [facility] RNA XXX ALBERTO+probe- Imp This lab was ordered by [facility] and reported by [employer]. Procedure Vital Signs ID Date Data Source UNK Name Value Range Interpretation Code Description Data Source(s) Diastolic blood 60 mm[Hg] 60 mm[Hg] [facility] pressure Hospital Systolic blood 113 mm[Hg] 113 mm[Hg] [facility] pressure Hospital Respiratory rate 16 /min 16 /min [facility] Heart rate 78 /min 78 /min [facility] Body temperature 36.02095 [place] 36.54936 Neelima [facility] Body temperature 97.4 [degF] 97.4 [degF] [facility] Body mass index 36.5 kg/m2 36.5 kg/m2 [facility] ins (BMI) [Ratio] Hospital Body weight 206 [lb_av] 206 [lb_av] [facility]
[2020-04-17 09:59] VITALS: TEMP 99.1
[2020-04-17 10:41] VITALS: BP 120/55; PULSE 61
--- NOTE | 2020-04-18 17:04 | PATH ---
Surgical Pathology Report Patient Name: KINZA BUSTOS [facility]. Rec. #: [id number] /Age/Gender: 1950 (Age: 70) / F Account: [id number] Location: ASU-ENDOSCOPY Taken: 04/17/2020 Received: 04/17/2020 Reported: 04/18/2020 Physicians: Elena Malone M.D. Specimen(s) Received A: SIGMOID POLYP B: RIGHT COLON POLYP C: LARGE PROXIMAL TRANVERSE COLON POLYP Clinical History Adenoma surveillance Postoperative diagnosis: Colon polyps, diverticulosis Final Diagnosis A. SIGMOID COLON, POLYP, BIOPSY: HYPERPLASTIC POLYP. B. COLON, RIGHT, POLYP, POLYPECTOMY: TUBULAR ADENOMA. C. LARGE PROXIMAL TRANVERSE COLON, POLYP, POLYPECTOMY: MATURE FIBROADIPOSE TISSUE WITH OVERLYING COLONIC MUCOSA CONSISTENT WITH SUBMUCOSAL LIPOMA. Comment: Suggest clinical and endoscopic correlation. Electronically Signed Kinza Pham M.D. Gross Description A. Received in formalin, labeled "biopsy sigmoid polyp" is a acosta, irregular portion of soft tissue measuring 0.6 cm. in greatest dimension. The specimen is submitted in toto in one cassette. B. Received in formalin, labeled "right colon polyp" is a acosta, polypoid portion of soft tissue measuring 0.5 cm. in greatest dimension. The specimen is submitted in toto in one cassette. C. Received in formalin labeled "large proximal transverse colon biopsy and hot snare," is a 1.7 x 1.3 x 0.8 cm acosta, polypoid portion of soft tissue. The base is inked blue and the specimen is serially sectioned. Separately received within the same container are 2 acosta soft tissue fragments averaging 0.3 cm greatest dimension. The specimen is entirely submitted in 3 cassettes as follows: 1-two acosta soft tissue fragments; 9-5-kyovslsk sectioned polyp. /04/17/2020 saudi04/17/2020
== END 2020-04-17 11:16 | disposition home or self-care (01) ==
LOC: JASU-ENDO 04:39
PROVIDERS: ATTEND Internal Medicine Gastroenterology
PROC: 0DBL8ZX Excision of Transverse Colon, Via Natural or Artificial Opening Endoscopic, Diagnostic (ICD-10-PCS; 2020-04-17)
PROC: 0DBL8ZX Excision of Transverse Colon, Via Natural or Artificial Opening Endoscopic, Diagnostic (ICD-10-PCS; 2020-04-17)
PROC: 0DBK8ZX Excision of Ascending Colon, Via Natural or Artificial Opening Endoscopic, Diagnostic (ICD-10-PCS; principal; 2020-04-17 09:00)
DX: Z12.11 Encounter for screening for malignant neoplasm of colon (principal); Z86.010 Personal history of colon polyps; D12.2 Benign neoplasm of ascending colon; D12.5 Benign neoplasm of sigmoid colon; D12.3 Benign neoplasm of transverse colon; K57.30 Diverticulosis of large intestine without perforation or abscess without bleeding; K64.8 Other hemorrhoids
CPT/HCPCS: 88305-TC

== ENCOUNTER 2021-02-11 21:56 | Emergency (ER) | payer OTHER, MEDICARE ==
[2021-02-11 22:08] VITALS: TEMP 98.6; BMI 35.6
[2021-02-11] MEDS ORDERED: VANCOMYCIN 1 GM in D5W (PRE-DOCKED) 1,000 MG/250 ML IVPB STA (22:17)
[2021-02-11] MEDS ORDERED: PIPERACILLIN/TAZOB 3.375 GM 3.375 GM in DEXTROSE 5%-WATER - 50 ML IVPB ONE (22:17)
[2021-02-11] MEDS ORDERED: PIPERACILLIN/TAZOBACTAM 3.375 GM VIAL IVPB ONE (22:23)
[2021-02-11] MEDS ORDERED: VANCOMYCIN 1,000 MG VIAL (RESTRICTED TO ID ONLY) ONE (22:24)
[2021-02-11 22:36] LABS: BASO % 2.1 % (0-2.0); EOS % 1.4 % (0-4.5); HEMATOCRIT 41.3 % (32.4-45.2); HEMOGLOBIN 14.2 GM/dl (10.7-15.3); LYMPH % 25.2 % (8-40); MCH 31.4 pg (25.7-33.7); MCHC 34.4 g/dl (32.0-36.0); MEAN CELL VOLUME 91.4 fl (80-96); MEAN PLT VOLUME 9.3 fl (7.5-11.1); MONO % 8.7 % (3.8-10.2); NEUT % 62.6 % (42.8-82.8); PLATELET COUNT 248 10^3/uL (134-434); RBC 4.52 M/mm3 (3.60-5.2); RDW 12.2 % (11.6-15.6); WHITE BLOOD COUNT 8.3 K/mm3 (4.0-10.8)
[2021-02-12 00:21] VITALS: BP 167/73; PULSE 60
== END 2021-02-12 00:23 | disposition home or self-care (01) ==
LOC: FER 21:56
DX: L03.116 Cellulitis of left lower limb (principal)
CPT/HCPCS: 36415; 85025; 99284-25

== ENCOUNTER 2021-05-12 17:28 | Emergency (ER) | payer OTHER ==
[2021-05-12] MEDS ORDERED: DIPHTH,PERTUSS(ACELL),TET 0.5 ML DISP.SYRIN IM ONE ×2 (17:43→17:46)
[2021-05-12] MEDS ORDERED: AMOX TR/POT CLAV 875MG/125MG TABLETS (FP) PO ONE (17:47)
[2021-05-12] MEDS ORDERED: AMOX TR/POT CLAV 875MG/125MG TABLETS (FP) ONE (17:50)
[2021-05-12 17:56] VITALS: BP 157/88; PULSE 90; TEMP 97.5; BMI 38.0
== END 2021-05-12 18:02 | disposition home or self-care (01) ==
LOC: FER 17:28
PROC: 3E0234Z Introduction of Serum, Toxoid and Vaccine into Muscle, Percutaneous Approach (ICD-10-PCS; principal; 2021-05-12)
DX: S61.451A Open bite of right hand, initial encounter (principal); W55.01XA Bitten by cat, initial encounter
CPT/HCPCS: 90471; 90715; 99284-25

== ENCOUNTER 2021-12-20 23:08 | Emergency (ER) | payer OTHER ==
[2021-12-20 23:17] VITALS: BP 156/69; PULSE 80; TEMP 98.8; BMI 38.0
[2021-12-20] MEDS ORDERED: SODIUM CHLORIDE 1,000 ML IV ONE (23:25)
[2021-12-20] MEDS ORDERED: ONDANSETRON 4 MG/2 ML VIAL IVPB ONE (23:26)
[2021-12-20] MEDS ORDERED: ONDANSETRON 4 MG/2 ML VIAL ONE (23:36)
[2021-12-20 23:42] LABS: HEMATOCRIT 43.9 % (32.4-45.2); HEMOGLOBIN 15.7 G/dL (10.7-15.3); MCH 31.9 pg (25.7-33.7); MCHC 35.7 g/dl (32.0-36.0); MEAN CELL VOLUME 89.3 fl (80-96); MEAN PLT VOLUME 8.8 fl (7.5-11.1); PLATELET COUNT 205.6 10^3/uL (134-434); RBC 4.92 10^6/uL (3.60-5.2); WHITE BLOOD COUNT 10.5 10^3/uL (4.0-10.8)
[2021-12-20 23:59] LABS: BILIRUBIN,TOTAL 1.8 mg/dl (0.2-1); CALCIUM 9.4 mg/dl (8.5-10); CREATININE 0.9 mg/dl (0.55-1.3); TOT PROT 6.9 g/dl (6.4-8.2)
== END 2021-12-21 00:58 | disposition home or self-care (01) ==
LOC: FER 23:08
PROC: 3E033NZ Introduction of Analgesics, Hypnotics, Sedatives into Peripheral Vein, Percutaneous Approach (ICD-10-PCS; principal; 2021-12-20)
DX: R11.10 Vomiting, unspecified (principal)
CPT/HCPCS: 36415; 80053; 85025; 99284-25

== ENCOUNTER 2022-03-12 23:29 | Observation (INO) | payer OTHER, MEDICARE ==
[2022-03-13 01:14] LABS: BASO % 0.6 % (0-2.0); EOS % 0.9 % (0-4.5); HEMATOCRIT 43.8 % (32.4-45.2); HEMOGLOBIN 14.5 GM/dL (10.7-15.3); LYMPH % 21.5 % (8-40); MCHC 33.2 g/dl (32.0-36.0); MEAN CELL VOLUME 90.4 fl (80-96); MEAN PLT VOLUME 9.8 fl (7.5-11.1); MONO % 7.6 % (3.8-10.2); NEUT % 69.4 % (42.8-82.8); PLATELET COUNT 252 10^3/uL (134-434); RBC 4.84 M/mm3 (3.60-5.2); RDW 12.5 % (11.6-15.6); WHITE BLOOD COUNT 7.5 K/mm3 (4.0-10.0)
[2022-03-13 01:33] LABS: CHLORIDE 98 mmol/L (98-107); SODIUM 127 mmol/L (136-145)
[2022-03-13 01:35] LABS: CALCIUM 7.9 mg/dL (8.5-10.1)
[2022-03-13 01:36] LABS: ALBUMIN 3.4 g/dl (3.4-5.0); BLOOD UREA NITROGEN 19.6 mg/dL (7-18); CO2 34 mmol/L (21-32); GLUCOSE,RANDOM 108 mg/dL (74-106)
[2022-03-13 01:39] LABS: CREATININE 0.9 mg/dL (0.55-1.3)
[2022-03-13 01:40] LABS: TOT PROT 7.9 g/dl (6.4-8.2)
[2022-03-13 01:41] LABS: BILIRUBIN,TOTAL 3.5 mg/dL (0.2-1)
[2022-03-13 01:42] LABS: ALK PHOS 63 U/L (45-117)
[2022-03-13 02:32] LABS: ALBUMIN 3.5 g/dl (3.4-5.0); BLOOD UREA NITROGEN 18.6 mg/dL (7-18)
[2022-03-13 02:35] LABS: CREATININE 0.7 mg/dL (0.55-1.3)
[2022-03-13 02:36] LABS: BILIRUBIN,TOTAL 0.5 mg/dL (0.2-1); TOT PROT 6.6 g/dl (6.4-8.2)
[2022-03-13 02:39] LABS: ANION GAP -5 MMOL/L (8-16); SGOT/AST 143 U/L (15-37)
[2022-03-13 02:40] LABS: CALCIUM 9.1 mg/dL (8.5-10.1)
[2022-03-13] MEDS ORDERED: POTASSIUM CHLORIDE TABS 20 MEQ TABLET.ER (FP) PO ONE ×2 (03:49→05:30)
[2022-03-13] MEDS ORDERED: MECLIZINE HCL 12.5 MG TABLET PO PRN (06:29)
[2022-03-13 07:37] LABS: CALCIUM 9.1 mg/dL (8.5-10.1); MAGNESIUM 2.2 mg/dL (1.8-2.4)
[2022-03-13 07:39] LABS: ALBUMIN 3.4 g/dl (3.4-5.0); BLOOD UREA NITROGEN 16.5 mg/dL (7-18)
[2022-03-13 07:40] LABS: CREATININE 0.8 mg/dL (0.55-1.3)
[2022-03-13 07:42] LABS: TOT PROT 6.4 g/dl (6.4-8.2)
[2022-03-13 07:44] LABS: BILIRUBIN,TOTAL 0.6 mg/dL (0.2-1)
[2022-03-13] MEDS ORDERED: ASPIRIN 81 MG CHEWABLE TABLETS PO SCH (10:00)
[2022-03-13] MEDS ORDERED: HYDROCHLOROTHIAZIDE 25 MG TABLET (FP) ONE (10:45)
[2022-03-13] MEDS ORDERED: ROSUVASTATIN CA 20 MG TABLET ONE (10:46)
[2022-03-13] MEDS ORDERED: VALSARTAN 80 MG TABLET ONE (10:46)
[2022-03-13] MEDS ORDERED: amLODIPine BESYLATE 5 MG TABLET (FP) ONE (10:48)
[2022-03-13] MEDS: ROSUVASTATIN CA 10 MG TABLET PO SCH (10:52)
[2022-03-13] MEDS: HYDROCHLOROTHIAZIDE 12.5 MG CAPSULE (FP) PO SCH (10:52)
[2022-03-13] MEDS: VALSARTAN 160 MG TABLET PO SCH (10:52)
[2022-03-13] MEDS: amLODIPine BESYLATE 5 MG TABLET (FP) PO SCH (10:53)
[2022-03-13 21:16] VITALS: BMI 39.5
[2022-03-13] MEDS: FAMOTIDINE 20 MG TABLET PO SCH (21:41)
[2022-03-13] MEDS: metoPROLOL SUCCINATE 25 MG TAB.SR.24H (FP) PO SCH (21:41)
[2022-03-13] MEDS: QUEtiapine FUMARATE 25 MG TABLET PO SCH (21:41)
[2022-03-13] MEDS: ASPIRIN COATED 81 MG TABLET.EC PO SCH (21:41)
[2022-03-13] MEDS ORDERED: PATIENT'S OWN MEDICATION (NON-FORMULARY) (Valsartan/Hydrochlorothiazide [Valsartan-Hctz 16 PO SCH (22:00)
[2022-03-14] MEDS: ROSUVASTATIN CA 10 MG TABLET PO SCH (09:27)
[2022-03-14] MEDS: VALSARTAN 160 MG TABLET PO SCH (09:27)
[2022-03-14] MEDS: HYDROCHLOROTHIAZIDE 12.5 MG CAPSULE (FP) PO SCH (09:27)
[2022-03-14] MEDS: amLODIPine BESYLATE 5 MG TABLET (FP) PO SCH (09:27)
[2022-03-14] MEDS: FAMOTIDINE 20 MG TABLET PO SCH (20:59)
[2022-03-14] MEDS: metoPROLOL SUCCINATE 25 MG TAB.SR.24H (FP) PO SCH (20:59)
[2022-03-14] MEDS: ASPIRIN COATED 81 MG TABLET.EC PO SCH (20:59)
[2022-03-14] MEDS: QUEtiapine FUMARATE 25 MG TABLET PO SCH (20:59)
[2022-03-15 07:28] LABS: BASO % 0.4 % (0-2.0); EOS % 1.8 % (0-4.5); HEMATOCRIT 42.5 % (32.4-45.2); HEMOGLOBIN 14.5 GM/dL (10.7-15.3); LYMPH % 31.5 % (8-40); MCH 30.8 pg (25.7-33.7); MCHC 34.1 g/dl (32.0-36.0); MEAN CELL VOLUME 90.1 fl (80-96); MEAN PLT VOLUME 9.2 fl (7.5-11.1); MONO % 8.8 % (3.8-10.2); NEUT % 57.5 % (42.8-82.8); PLATELET COUNT 249 10^3/uL (134-434); RBC 4.72 M/mm3 (3.60-5.2); RDW 12.8 % (11.6-15.6)
[2022-03-15 08:01] LABS: CALCIUM 8.9 mg/dL (8.5-10.1)
[2022-03-15 08:02] LABS: ALBUMIN 3.3 g/dl (3.4-5.0); BLOOD UREA NITROGEN 21.2 mg/dL (7-18)
[2022-03-15 08:06] LABS: BILIRUBIN,TOTAL 0.6 mg/dL (0.2-1); CREATININE 0.8 mg/dL (0.55-1.3)
[2022-03-15 08:08] LABS: TOT PROT 6.4 g/dl (6.4-8.2)
[2022-03-15] MEDS: ROSUVASTATIN CA 10 MG TABLET PO SCH (09:44)
[2022-03-15] MEDS: HYDROCHLOROTHIAZIDE 12.5 MG CAPSULE (FP) PO SCH (09:44)
[2022-03-15] MEDS: VALSARTAN 160 MG TABLET PO SCH (09:44)
[2022-03-15] MEDS: amLODIPine BESYLATE 5 MG TABLET (FP) PO SCH (09:44)
[2022-03-15] MEDS: ASPIRIN COATED 81 MG TABLET.EC PO SCH (20:59)
[2022-03-15] MEDS: QUEtiapine FUMARATE 25 MG TABLET PO SCH (20:59)
[2022-03-15] MEDS: FAMOTIDINE 20 MG TABLET PO SCH (21:00)
[2022-03-15] MEDS: metoPROLOL SUCCINATE 25 MG TAB.SR.24H (FP) PO SCH (21:01)
[2022-03-16] MEDS ORDERED: REGADENOSON 0.4 MG/5 ML PRE-FILLED SYRINGE IVPUSH ONE ×2 (09:54→10:30)
[2022-03-16] MEDS: amLODIPine BESYLATE 5 MG TABLET (FP) PO SCH (09:58)
[2022-03-16] MEDS: VALSARTAN 160 MG TABLET PO SCH (14:31)
[2022-03-16] MEDS: ROSUVASTATIN CA 10 MG TABLET PO SCH (14:31)
[2022-03-16] MEDS: HYDROCHLOROTHIAZIDE 12.5 MG CAPSULE (FP) PO SCH (14:32)
[2022-03-16] MEDS: ASPIRIN COATED 81 MG TABLET.EC PO SCH (20:59)
[2022-03-16] MEDS: metoPROLOL SUCCINATE 25 MG TAB.SR.24H (FP) PO SCH (20:59)
[2022-03-16] MEDS: FAMOTIDINE 20 MG TABLET PO SCH (21:00)
[2022-03-16] MEDS: QUEtiapine FUMARATE 25 MG TABLET PO SCH (21:00)
[2022-03-17 09:48] VITALS: BP 121/67; PULSE 60; RESP 18; TEMP 99
[2022-03-17] MEDS: VALSARTAN 160 MG TABLET PO SCH (09:56)
[2022-03-17] MEDS: HYDROCHLOROTHIAZIDE 12.5 MG CAPSULE (FP) PO SCH (09:56)
[2022-03-17] MEDS: ROSUVASTATIN CA 10 MG TABLET PO SCH (09:56)
[2022-03-17] MEDS: amLODIPine BESYLATE 5 MG TABLET (FP) PO SCH (09:56)
== END 2022-03-17 17:10 | disposition home or self-care (01) ==
LOC: JER 23:29 → JERBED 03-13 03:07 → J4W 03-13 19:53
PROVIDERS: ADMIT Internal Medicine; ATTEND Family Medicine
PROC: 3E033GC Introduction of Other Therapeutic Substance into Peripheral Vein, Percutaneous Approach (ICD-10-PCS; principal; 2022-03-13)
DX: I25.10 Atherosclerotic heart disease of native coronary artery without angina pectoris (principal); I11.9 Hypertensive heart disease without heart failure; K21.9 Gastro-esophageal reflux disease without esophagitis; E88.81 Metabolic syndrome and other insulin resistance; R07.9 Chest pain, unspecified; E66.9 Obesity, unspecified; Z68.39 Body mass index [BMI] 39.0-39.9, adult; Z95.5 Presence of coronary angioplasty implant and graft; R61 Generalized hyperhidrosis; F41.8 Other specified anxiety disorders; R06.02 Shortness of breath; R07.89 Other chest pain; M54.9 Dorsalgia, unspecified; R00.2 Palpitations; Z20.822 Contact with and (suspected) exposure to COVID-19; Z88.8 Allergy status to other drugs, medicaments and biological substances; Z91.010 Allergy to peanuts; E78.5 Hyperlipidemia, unspecified; F32.9 Major depressive disorder, single episode, unspecified; R11.0 Nausea
CPT/HCPCS: 36415; 71045-TC-FY; 78452-TC; 80053; 80061; 82550; 82553; 83735; 84484; 85025; 93005; 93010; 93017; 96374; 99285-25; A9502; C9803-CS; G0378; J2785; U0003; U0005

== ENCOUNTER 2022-04-26 11:25 | Emergency (ER) | payer OTHER ==
[2022-04-26 11:34] VITALS: BP 139/57; PULSE 69; RESP 18; TEMP 98.8; BMI 32.3
[2022-04-26] MEDS ORDERED: IBUPROFEN 400 MG TABLET (FP) PO ONE ×2 (11:38→12:07)
== END 2022-04-26 12:59 | disposition home or self-care (01) ==
LOC: FER 11:25
DX: M25.572 Pain in left ankle and joints of left foot (principal)
CPT/HCPCS: 73610-TC-RT-FY; 73630-TC-RT-FY; 99284-25